=== PATIENT | female | born 1945 | race Caucasian/White ===

== ENCOUNTER 2019-11-04 10:12 | Outpatient (CLI) | payer MEDICARE, SELFPAY ==
--- NOTE | ~2019-11-04 | MM_ITS ---
EXAMINATION: MM screening [facility] BI w avery HISTORY: Screening mammogram TECHNIQUE: Craniocaudal and mediolateral oblique 3-D tomosynthesis images were obtained and synthetic 2-D images were generated. CAD analysis was submitted and interpreted. COMPARISON: 11/07/2018, 09/19/2017, 09/16/2016 bilateral digital screening mammogram examinations BREAST PARENCHYMAL COMPOSITION: There are scattered areas of fibroglandular density. FINDINGS: Occasional bilateral benign calcifications. There is no evidence of suspicious mass, calcif ication, or architectural distortion to suggest malignancy in either breast. There has been no suspic ious interval change. IMPRESSION: 1. No mammographic evidence of malignancy. 2. Recommend routine screening mammography in one year. BI-RADS Category 2: Benign finding(s). Reviewed, dictated and finalized at location A.
== END 2019-11-04 10:13 | disposition home or self-care (01) ==
LOC: ANHIMG 10:17
PROVIDERS: PCP Family Medicine; Visit Provider Family Medicine
DX: Z12.31 Encounter for screening mammogram for malignant neoplasm of breast (principal)
CPT/HCPCS: 77063; 77067

== ENCOUNTER → 2020-08-21 08:25 | Outpatient (CLI) | payer MEDICARE, SELFPAY ==
[2020-08-21 18:21] LABS: SARS-CoV-2 RNA PCR Negative
== END ==
PROVIDERS: PCP Family Medicine; Visit Provider Specialist
DX: Z01.812 Encounter for preprocedural laboratory examination (principal); Z20.822 Contact with and (suspected) exposure to COVID-19
CPT/HCPCS: C9803; U0003; U0005

== ENCOUNTER 2020-08-24 01:16 | Day surgery (SDC) | payer MEDICARE, SELFPAY ==
[2020-08-23 11:23] VITALS: BMI 28.5
[2020-08-24] VITALS (10 sets, daily range): BP systolic 105–176; BP diastolic 58–84; PULSE 63–75; RESP 15–18; TEMP 36.3–36.4; O2SAT 96–99; BMI 29.2
[2020-08-24 11:55] LABS: Basophils Percent Auto 0.5 % (0.2-1.2); Eosinophils Percent Auto 0.3 % (0-4.4); Hemoglobin 13.2 g/dL (12.0-15.0); Immature Granulocyte Absolute 0.02 K/mm3 (0.00-0.031); Immature Granulocyte Percent A 0.3 % (0-0.5); Lymphocytes Absolute Auto 0.92 K/mm3 (0.9-3.2); Lymphocytes Percent Auto 13.9 % (18.3-44.2); Mean Corpuscular HGB Conc 33.8 g/dl (32-36); Mean Corpuscular Hemoglobin 28.8 pg (26-34); Mean Corpuscular Volume 85.2 fl (80-100); Mean Platelet Volume 9.8 fl (7.4-10.4); Monocytes Absolute Auto 0.2 K/mm3 (0.1-0.6); Monocytes Percent Auto 3.3 % (2.6-8.5); Neutrophils Absolute Auto 5.4 K/mm3 (1.3-6.7); Neutrophils Percent Auto 81.7 % (45.5-73.1); Platelet Count Result 212 k/mm3 (150-375); Red Blood Count 4.58 M/mm3 (4.2-5.4); Red Cell Distribution Width 14.2 % (11.5-14.5); White Blood Count 6.6 K/mm3 (4.5-10.0)
[2020-08-24 12:03] LABS: Prothrombin Time 13.6 Seconds (11.1-14.7)
[2020-08-24 12:15] LABS: Anion Gap 6 mmol/L (8-16); Blood Urea Nitrogen 16 mg/dL (7-17); Calcium 9.3 mg/dL (8.4-10.2); Carbon Dioxide 27 mmol/L (22-30); Chloride 103 mmol/L (98-107); Estimated CRCL calculation 68 ml/min; Estimated Glomerular Filt Rate > 60; Glucose 124 mg/dL (65-105); Potassium 4.2 mmol/L (3.4-5.0); Sodium 136 mmol/L (137-145)
--- NOTE | 2020-08-24 13:25 | PM.IMHP ---
H&P: HPI History of Present Illness Date/Time: 08/24/20 13:25 75-year-old lady with history of hypertension, was seen because of recurrent episode of chest pain and shortness breath had a stress test which showed inferior ischemia was brought to the hospital for elective cardiac catheterization for definitive diagnosis of coronary disease Chief Complaint: shortness of breath, chest pain Narrative: Leigh Luna is a 75 year old female [facility] Family History Family History (Updated 05/15/16 @ 10:03 by DOCTOR UNKNOWN) Mother Family history of diabetes mellitus in first degree relative Family history of coronary artery disease Sibling Family history of diabetes mellitus in first degree relative Other Family history of arthritis Family history of osteoarthritis Hypertension Social History Social History Smoking status: Never smoker Second hand tobacco smoke exposure: Yes Alcohol intake: never Substance use: never Substance use type: does not use Living arrangements: with family Gender identity (if verbalized by the patient): Female Spiritual care concerns: No Meds Home Medications and Allergies Home Medications Medication Instructions Recorded Confirmed Type buspirone 7.5 mg PO DAILY 08/23/20 08/23/20 History diclofenac sodium 100 mg PO DAILY 08/23/20 08/23/20 History hydrochlorothiazide 25 mg PO DAILY 08/23/20 08/23/20 History lisinopril 40 mg PO DAILY 08/23/20 08/23/20 History omeprazole 20 mg PO DAILY 08/23/20 08/23/20 History Allergies Allergy/AdvReac Type Severity Reaction Status Date / Time celecoxib Allergy Severe CHEST PAINS Verified 08/24/20 12:25 adhesive tape Allergy Unknown Rash Verified 08/24/20 12:25 duloxetine Allergy Unknown Unknown Verified 08/24/20 12:25 iodine Allergy Unknown Hives Verified 08/24/20 12:25 losartan Allergy Unknown Diarrhea Verified 08/24/20 12:25 morphine Allergy Unknown Nausea and Verified 08/24/20 12:25 Vomiting naproxen Allergy Unknown Unknown Verified 08/24/20 12:25 nickel Allergy Unknown Rash Verified 08/24/20 12:25 shellfish derived Allergy Unknown Hives Verified 08/24/20 12:25 Oksvmbm-Ehm-Qeo Reductase Allergy Unknown Unknown Verified 08/24/20 12:25 Inhibitor Vital Signs Vital Signs - 24 hr 08/24/20 11:23 Temperature 36.3 C L Pulse Rate 68 Respiratory Rate 16 Blood Pressure 176/66 H Pulse Oximetry 96 Exam Narrative: Exam Narrative: Awake alert oriented x3 not in acute distress Neck is supple no obvious JVD, no carotid bruit Chest: Good air entry bilaterally, lungs are clear to auscultation and percussion bilaterally Cardiovascular: Regular rate and rhythm, 2/6 systolic murmur noted left sternal border Abdomen: Soft nontender bowel sounds positive Extremities: No edema has good pulses distally bilaterally H&P: Results Labs Labs: Short CBC 08/24/20 Range/Units 11:45 WBC 6.6 (4.5-10.0) K/mm3 Hgb 13.2 (12.0-15.0) g/dL Hct 39.0 (37.0-47.0) % Plt Count 212 (150-375) k/mm3 BMP 08/24/20 11:45 Sodium 136 L Potassium 4.2 Chloride 103 Carbon Dioxide 27 BUN 16 Creatinine 0.80 Glucose 124 H Calcium 9.3 Assessment and Plan Assessment and plan (1) Coronary artery disease: Code(s): I25.10 - Atherosclerotic heart disease of [place] coronary artery without angina pectoris Status: Acute (2) Abnormal stress electrocardiogram test: Code(s): R94.39 - Abnormal result of other cardiovascular function study Status: Acute Assessment and Plan: will plan cardiac catheterization. The procedure was discussed with the patient, risks, benefits, and alternative diagnostic measure was explained, patient agreed to the procedure
--- NOTE | 2020-08-24 13:26 | WPDMODSED ---
Moderate Sedation Note-Pt Data Patient Data Allergies Allergy/AdvReac Type Severity Reaction Status Date / Time celecoxib Allergy Severe CHEST PAINS Verified 08/24/20 12:25 adhesive tape Allergy Unknown Rash Verified 08/24/20 12:25 duloxetine Allergy Unknown Unknown Verified 08/24/20 12:25 iodine Allergy Unknown Hives Verified 08/24/20 12:25 losartan Allergy Unknown Diarrhea Verified 08/24/20 12:25 morphine Allergy Unknown Nausea and Verified 08/24/20 12:25 Vomiting naproxen Allergy Unknown Unknown Verified 08/24/20 12:25 nickel Allergy Unknown Rash Verified 08/24/20 12:25 shellfish derived Allergy Unknown Hives Verified 08/24/20 12:25 Otdnyar-Zbz-Ibk Reductase Allergy Unknown Unknown Verified 08/24/20 12:25 Inhibitor Home Medications Medication Instructions Recorded Confirmed Type buspirone 7.5 mg PO DAILY 08/23/20 08/23/20 History diclofenac sodium 100 mg PO DAILY 08/23/20 08/23/20 History hydrochlorothiazide 25 mg PO DAILY 08/23/20 08/23/20 History lisinopril 40 mg PO DAILY 08/23/20 08/23/20 History omeprazole 20 mg PO DAILY 08/23/20 08/23/20 History Current Medications: Active Medications Sodium Chloride (Normal Saline Iv) 500 mls @ 100 mls/hr IV CONT .Q5H LANDON Sedation/Anesthesia: No previous sedation/anesthesia problems (including family history). [facility] Family History Family History (Updated 05/15/16 @ 10:03 by DOCTOR UNKNOWN) Mother Family history of diabetes mellitus in first degree relative Family history of coronary artery disease Sibling Family history of diabetes mellitus in first degree relative Other Family history of arthritis Family history of osteoarthritis Hypertension Social History Social History Smoking status: Never smoker Second hand tobacco smoke exposure: Yes Alcohol intake: never Substance use: never Substance use type: does not use Living arrangements: with family Gender identity (if verbalized by the patient): Female Spiritual care concerns: No Mod Sed Physical Exam Physical Exam Pre Procedural Exam: Normal: Appearance, Eyes, Ears, Nose, Neck, Throat, Airway, Lungs, Heart Size, Heart Rate, Heart Rhythm, Neuro Exam, Abdomen, Liver, Kidneys, Spleen, Breasts, Genitalia, Extremities and Skin Hours since solid foods: 8 Hours since liquid intake: 8 Internal Medicine - PN: Obj Da Vital Signs Vital Signs: Vital Signs - 24 hr 08/24/20 11:23 Temperature 36.3 C L Pulse Rate 68 Respiratory Rate 16 Blood Pressure 176/66 H Pulse Oximetry 96 Meds/Results Medications: Active Medications Generic Name Dose Route Start Last Admin Trade Name Joaquinq PRN Reason Stop Dose Admin Sodium Chloride 500 mls @ 100 mls/hr 08/24/20 07:15 Normal Saline Iv IV CONT .Q5H LANDON Labs CBC & Chem 7: 08/24/20 11:45 08/24/20 11:45 Labs: Laboratory Results - last 24 hr 08/24/20 08/24/20 08/24/20 11:45 11:45 11:45 WBC 6.6 RBC 4.58 Hgb 13.2 Hct 39.0 MCV 85.2 MCH 28.8 MCHC 33.8 RDW 14.2 Plt Count 212 MPV 9.8 Immature Gran % (Auto) 0.3 Neut % (Auto) 81.7 H Lymph % (Auto) 13.9 L [place] % (Auto) 3.3 Eos % (Auto) 0.3 Baso % (Auto) 0.5 Lymph # (Auto) 0.92 [place] # (Auto) 0.2 Eos # (Auto) 0.0 Baso # (Auto) 0.0 Abs Immat Gran (auto) 0.02 Absolute Neuts (auto) 5.4 Absolute Nucleated RBC 0.0 Nucleated RBC % 0.0 PT 13.6 INR 1.0 Sodium 136 L Potassium 4.2 Chloride 103 Carbon Dioxide 27 Anion Gap 6 L BUN 16 Creatinine 0.80 Estim Creat Clear Calc 68 Estimated GFR > 60 Glucose 124 H Calcium 9.3 ASA Classification/Sedation ASA Classification/Sedation ASA Class: II Risks: Risks, benefits and alternatives explained and patient/family accepted plan for sedation. Patient re-evaluated immediately prior to sedation.
--- NOTE | 2020-08-24 13:46 | WPDCARDPROC ---
Cardiac Cath Procedure Note Date of procedure:: 08/24/20 Performing physician:: Doug Moreno MD Procedure: 1. Left heart catheterization, selective coronary angiogram. 2. Left ventricular angiogram. 3. Conscious sedation, standing time is 1:26 p.m. ending time is 1:42 p.m. using 1 mg of Versed 25 micro crown fentanyl 4. Right Femoral artery angiogram with Angio-Seal device for arterial hemostasis Group Billing Coordinator: Dr. Doug Moreno Complications: None. Sedation: Conscious sedation, local anesthesia, using 1 mg of Versed said, 25 mcg of fentanyl, and using 1% lidocaine for local anesthesia. History: 75 years old lady with history of hypertension is dyslipidemia seen because of chest pain and shortness breath noted to have abnormal stress test with inferior ischemia was brought to the geotechnical laboratory technician for elective cardiac catheterization for definitive diagnosis of coronary disease. She was premedicated with steroids because of history of dye allergy Technique: After informed consent was obtained from patient, was brought to the geotechnical laboratory technician, put in the geotechnical laboratory technician table, prepped and draped in usual sterile fashion. Five Sammarinese sheath was inserted into the right common femoral artery, through the sheath 5 Sammarinese JL4 catheter inserted, advanced to the left coronary artery, left coronary artery angiogram was obtained. The catheter was exchanged over guidewire into a 5 Sammarinese JR4 catheter, advanced to the right coronary artery, right coronary artery angiogram was obtained. The catheter then was exchanged over guidewire into this 5 Sammarinese pigtail catheter, advanced to left ventricle, left ventricular angiogram was obtained. The catheter then was pulled, the sheath was pulled applying Angio-Seal device for arterial hemostasis. Patient tolerated the procedure no complication, taken from the geotechnical laboratory technician to his room in stable condition stable vital signs. Hemodynamics: aortic pressure 154/60 . LV pressure 158/09 with LVEDP of 21 mmHg Angiographic findings: Left main: Medium size artery no significant disease or stenosis. Lad medium size artery showed no significant disease or stenosis Left circumflex artery, medium size artery, no significant disease or stenosis. there is a branch of the 1st obtuse marginal showed moderate disease but is a very small vessel RCA: Dominant vessel, showed mid RCA no significant disease or stenosis LV: Normal size left ventricle with normal left ventricular systolic function. Summary: Mild coronary artery disease, normal left ventricular systolic function. Recommendation: Maximum medical treatment. Risk factor modification
--- NOTE | 2020-08-24 16:24 | SUR.PHASEII ---
1530 - HOB elevated to 30 degrees after one hour of laying flat on bedrest. Tolerating PO without nausea or vomiting. Voided per bedpan. IVF infusing. RFA site remains clean, dry and intact. Right DP pulses present. Daughter at bedside. Instructed on post cath restrictions with stated understanding.
== END 2020-08-24 17:17 | disposition home or self-care (01) ==
PROVIDERS: PCP Family Medicine; Visit Provider Specialist
PROC: 4A023N7 Measurement of Cardiac Sampling and Pressure, Left Heart, Percutaneous Approach (ICD-10-PCS; CPT 93452; principal; 2020-08-24 13:00)
DX: I25.10 Atherosclerotic heart disease of native coronary artery without angina pectoris (principal); R94.39 Abnormal result of other cardiovascular function study; R07.9 Chest pain, unspecified; R06.02 Shortness of breath; I10 Essential (primary) hypertension; E78.5 Hyperlipidemia, unspecified
CPT/HCPCS: 36415; 80048; 85025; 85610; 93458; C1760; C1887; C1894; C9803; G0269; J1644; J2250; J2930; J3010; J7040; U0003; U0005

== ENCOUNTER 2020-12-06 12:12 | Outpatient (CLI) | payer MEDICARE, SELFPAY ==
--- NOTE | ~2020-12-06 | MM_ITS ---
EXAMINATION: MM screening [facility] BI w avery HISTORY: Screening mammogram TECHNIQUE: Craniocaudal and mediolateral oblique 3-D tomosynthesis images were obtained and synthetic 2-D images were generated. CAD analysis was submitted and interpreted. COMPARISON: 11/04/2019, 10/28/2018, 09/19/2017 BREAST PARENCHYMAL COMPOSITION: There are scattered areas of fibroglandular density. FINDINGS: Scattered benign-appearing calcifications are present. There is no evidence of suspicious m ass, calcification, or architectural distortion to suggest malignancy in either breast. There has bee n no suspicious interval change. IMPRESSION: 1. No mammographic evidence of malignancy. 2. Recommend routine screening mammography in one year. BI-RADS Category 2: Benign finding(s). Reviewed, dictated and finalized at location A.
== END 2020-12-06 12:13 | disposition home or self-care (01) ==
LOC: ANHIMG 12:16
PROVIDERS: PCP Family Medicine; Visit Provider Family Medicine
DX: Z12.31 Encounter for screening mammogram for malignant neoplasm of breast (principal)
CPT/HCPCS: 77063; 77067

== ENCOUNTER 2022-07-01 15:50 | Outpatient (CLI) | payer MEDICARE, SELFPAY ==
--- NOTE | ~2022-07-01 | MM_ITS ---
EXAMINATION: MM screening [facility] BI w avery HISTORY: Screening mammogram TECHNIQUE: Craniocaudal and mediolateral oblique 3-D tomosynthesis images were obtained and synthetic 2-D images were generated. CAD analysis was submitted and interpreted. COMPARISON: 12/06/2020, 11/04/2019, 10/28/2018 bilateral screening mammogram examinations BREAST PARENCHYMAL COMPOSITION: There are scattered areas of fibroglandular density. FINDINGS: Scattered bilateral benign calcifications. There is no evidence of suspicious mass, calcifi cation, or architectural distortion to suggest malignancy in either breast. There has been no suspici ous interval change. IMPRESSION: 1. No mammographic evidence of malignancy. 2. Recommend routine screening mammography in one year. BI-RADS Category 2: Benign finding(s). Reviewed, dictated and finalized at location A. AY OPERATOR
== END 2022-07-01 15:51 | disposition home or self-care (01) ==
LOC: ANHIMG 15:51
PROVIDERS: PCP Family Medicine; Visit Provider Family Medicine
DX: Z12.31 Encounter for screening mammogram for malignant neoplasm of breast (principal)
CPT/HCPCS: 77063; 77067

== ENCOUNTER 2023-01-14 16:07 | Outpatient (CLI) | payer MEDICARE, SELFPAY ==
--- NOTE | ~2023-01-14 | XR_ITS ---
XR knee RT 3V 01/14/2023 16:32 Indication: Right knee pain Procedure: 3 views right knee Comparison: 03/17/2017 Findings: There are changes of right knee arthroplasty. Prosthesis well seated. No underlying fractur e or traumatic malalignment. No acute fracture or traumatic malalignment. No significant joint effusi on. Impression: 1: No acute fracture. Reviewed, dictated and finalized at location A. Impression: 1: No acute fracture.
--- NOTE | ~2023-01-14 | XR_ITS ---
XR lumbar spine 2-3V 01/14/2023 16:32 Indication: Back pain Procedure: 3 views lumbar spine Comparison: No prior studies for comparison. Findings: There is disc narrowing at all lumbar levels. There is moderate facet hypertrophy at L3-4 t hrough L5-S1. There is degenerative retrolisthesis at L1-2 and L2-3. No acute fracture or traumatic m alalignment. Vertebral body heights are maintained. There is mild dextrocurvature of the lumbar spine . There are cholecystectomy clips. Impression: 1: Severe lumbar spondylosis. 2: No acute fracture. Reviewed, dictated and finalized at location A. Impression: 1: Severe lumbar spondylosis. 2: No acute fracture.
== END 2023-01-14 16:08 | disposition home or self-care (01) ==
PROVIDERS: PCP Nurse Practitioner Adult Health; Visit Provider Nurse Practitioner Adult Health
DX: M47.816 Spondylosis without myelopathy or radiculopathy, lumbar region (principal); M25.561 Pain in right knee; Z96.651 Presence of right artificial knee joint
CPT/HCPCS: 72100; 73562

== ENCOUNTER 2023-02-17 08:45 | Outpatient (CLI) | payer MEDICARE, SELFPAY ==
--- NOTE | 2023-02-17 | ECHO_ITS ---
Patient Info Name: Leigh Luna Age: 77 years : 1945 Gender: Female Ht: 71 in Wt: 175 lbs BSA: 2.00 m2 HR: 68 bpm BP: 161 / 80 mmHg Heart Rhythm: Sinus Rhythm Technical Quality: Fair Exam Date: 02/17/2023 9:00 AM Exam Location: [facility] Pulmonary Patient Status: Outpatient Admit Date: 02/17/2023 Staff Ordering Physician: BrandonInder APRN Metal Sorter: Kaia Reyes RDCS Attending Provider: Brandon, Inder Lovelace APRN Referring Physician: Jayden VASQUEZ; Exam Type: CA echo doppler color flow Study Info Indications R01.1 - Cardiac murmur, unspecified Complete two-dimensional, color flow and Doppler transthoracic echocardiogram is performed. Summary 1. Complete two-dimensional, color flow and Doppler transthoracic echocardiogram is performed. 2. Concentric left ventricular hypertrophy with normal systolic function and grade 1 diastolic noncompliance. 3. No valvular dysfunction. Left Ventricle Left ventricular chamber dimension is normal. Left ventricular systolic function is normal, estimated at 60-65%. There is mild concentric increased left ventricular wall thickness. The left ventricular diastolic function is grade I diastolic dysfunction. Right Ventricle Right ventricular chamber dimension is normal. Left Atria Left atrial chamber dimension is normal. Right Atria Right atrial chamber dimension is normal. Aortic Valve The aortic valve is normal. Pulmonic Valve The pulmonic valve is not well visualized. Mitral Valve The mitral valve has normal leaflets. Tricuspid Valve The tricuspid valve leaflets are normal. Pericardium/Pleural The pericardium appears normal. Aorta The aortic root size at the sinus of Valsalva is normal. Left Ventricular Outflow Tract Name Value Normal LVOT 2D LVOT Diameter 2.0 cm LVOT Doppler LVOT Peak Gradient 6 mmHg LVOT Mean Gradient 4 mmHg LVOT VTI 28 cm LVOT VTI/AV VTI Ratio 0.8 LVOT Stroke Volume 84 ml LVOT CO 5.9 l/min LVOT CI 2.9 l/min/m2 Pulmonic Valve Name Value Normal RVOT Doppler RVOT Peak Gradient 3 mmHg PV Doppler PV Peak Gradient 4 mmHg Mitral Valve Name Value Normal MV Doppler MV Decel [place] 567 cm/s2 MV PHT 51 ms MV Area (PHT) 4.3 cm2 4.0-5.0 MV Diastolic Function
== END 2023-02-17 08:46 | disposition home or self-care (01) ==
PROVIDERS: PCP Nurse Practitioner Adult Health; Visit Provider Nurse Practitioner Adult Health
DX: R01.1 Cardiac murmur, unspecified (principal)
CPT/HCPCS: 93306

== ENCOUNTER 2023-03-15 15:56 | Emergency (ER) | payer MEDICARE, SELFPAY ==
--- NOTE | ~2023-03-15 | CT_ITS ---
EXAMINATION: CT abdomen pelvis wo con DATE: 03/15/2023 17:35 INDICATION: abdominal pain TECHNIQUE: Computed tomography (CT) of the abdomen and pelvis was performed without intravenous contr ast. Automated exposure control and iterative reconstruction technique were employed. The dose-length product was 841.02 mGy-cm. COMPARISON: None. FINDINGS: Lower thorax: 3 mm nodular opacity in the left lower lobe. Minimal bibasilar scar/atelectasis. Mahmood ry artery calcification. Liver: Left lobe cyst or hemangioma. Biliary/Gallbladder: Gallbladder is absent. No bile duct dilation. Pancreas: 5 and 6 mm cystic densities at the pancreatic tail and body. 10 mm cystic density at the pa ncreatic head. Spleen: Normal. Adrenals: Left adrenal adenoma. Kidneys: 7.8 cm soft tissue density right upper pole mass now project in calcification. Simple right midpole cyst. No hydronephrosis. GI tract: No small or large bowel dilation. Normal appendix. Diverticulosis without diverticulitis. Mesentery/Peritoneum: No ascites, mass, or free air. Retroperitoneum: No mass. Atherosclerotic abdominal aortic and/or arterial calcifications. 11 mm part ially calcified splenic artery aneurysm. Pelvis: Pelvic organs are within normal limits. Soft Tissues: Soft tissues and body wall unremarkable. Bones: No acute osseous finding. IMPRESSION: 7.8 cm right upper pole renal mass suspicious for renal cell carcinoma. Given the history of contrast allergy, recommend MRI of the abdomen without and with contrast for further evaluation. 3 mm left lower lobe pulmonary nodule and multiple subcentimeter hepatic lytic cysts, follow-up will depend on the results of the above recommended MRI. 11 mm splenic artery aneurysm, typical follow-up is recommended in one year, depending on patient wis hes and comorbidities. Reviewed, dictated and finalized at location K. IMPRESSION: 7.8 cm right upper pole renal mass suspicious for renal cell carcinoma. Given t he history of contrast allergy, recommend MRI of the abdomen without and with c ontrast for further evaluation. 3 mm left lower lobe pulmonary nodule and multiple subcentimeter hepatic lytic cysts, follow-up will depend on the results of the above recommended MRI. 11 mm splenic artery aneurysm, typical follow-up is recommended in one year, de pending on patient wishes and comorbidities.
[2023-03-15 15:57] VITALS: BP 207/75; PULSE 86; RESP 18; TEMP 36.6; O2SAT 98
--- NOTE | 2023-03-15 16:21 | ED.NAVMDI ---
HPI - Nausea/Vomiting/Diarrhea General Chief complaint: Nausea/Vomiting/Diarrhea Stated complaint: Nausea, belching, diarrhea x2 weeks Time Seen by Provider: 03/15/23 16:18 History of Present Illness HPI Narrative: Patient is a 77-year-old female here with epigastric abdominal pain, heartburn, increased belching. Patient states that for the last 2 weeks she has had increasingly worsening symptoms. She is on Pepcid and increased it over the last few months from 20 mg daily to 40 mg daily. she is complaining of some so seated diarrhea. No fever chills. No known sick contacts, no new foods. She denies any chest pain or shortness of breath. Last colonoscopy was more than 10 years ago, she has been doing Cologuard the her primary care doctor. Her primary care doctor has referred her to GI and she is waiting for an appointment. Additionally she has noted some vague right flank pain which has been present over an unknown period of time. She does not believe this changes with eating and seems to be constant. No hematuria or dysuria. Related Data Home Medications Medication Instructions Recorded Confirmed buspirone 7.5 mg tablet 7.5 mg PO DAILY 08/23/20 09/12/22 diclofenac sodium 100 mg 100 mg PO DAILY 08/23/20 09/12/22 tablet,extended release 24 hr ascorbic acid (vitamin C) 500 mg 500 mg PO DAILY 08/06/22 09/12/22 capsule,extended release (Vitamin C) cetirizine 10 mg capsule (Zyrtec) 10 mg PO BID PRN 08/06/22 09/12/22 ergocalciferol (vitamin D2) 1,250 1,250 mcg PO WEEKLY 08/06/22 09/12/22 mcg (50,000 unit) capsule (Vitamin D2) magnesium 200 mg tablet 200 mg PO DAILY 08/06/22 09/12/22 tramadol 50 mg tablet 50 mg PO Q6H PRN pain 08/06/22 09/12/22 Allergies Allergy/AdvReac Type Severity Reaction Status Date / Time celecoxib Allergy Severe CHEST PAINS Verified 09/12/22 10:31 adhesive tape Allergy Unknown Rash Verified 09/12/22 10:31 duloxetine Allergy Unknown Unknown Verified 09/12/22 10:31 iodine Allergy Unknown Hives Verified 09/12/22 10:31 losartan Allergy Unknown Diarrhea Verified 09/12/22 10:31 morphine Allergy Unknown Nausea and Verified 09/12/22 10:31 Vomiting naproxen Allergy Unknown Unknown Verified 09/12/22 10:31 nickel Allergy Unknown Rash Verified 09/12/22 10:31 shellfish derived Allergy Unknown Hives Verified 09/12/22 10:31 Kyqgmhe-BOY-YuA Reductase Allergy Unknown Unknown Verified 09/12/22 10:31 Inhibitor [Wgqxzxf-Gxc-Rwm Reductase Inhibitor] Review of Systems Review of Systems: CONSTITUTIONAL: Denies fever, chills, or sweats. EYES: Denies visual changes, redness, or discharge. ENT: Denies rhinorrhea, congestion, sore throat, or otalgia. CARDIOVASCULAR: Denies chest pain, palpitations, or edema. RESPIRATORY: Denies cough or dyspnea. GASTROINTESTINAL: abdominal pain, nausea, vomiting, and diarrhea. GENITOURINARY: Denies dysuria or hematuria. Right flank pain. SKIN: Denies rash or itching. MUSCULOSKELETAL: Denies back pain, joint pain, or myalgia. NEUROLOGIC: Denies headache, numbness, or weakness. PSYCHIATRIC: Denies anxiety or depression. [facility] Surgical History Surgical History History of cholecystectomy History of total left knee replacement (2013) History of total right knee replacement (2016) Family History Family History Mother Family history of diabetes mellitus in first degree relative Family history of coronary artery disease Sibling Family history of diabetes mellitus in first degree relative Ovarian cancer Other Family history of arthritis Family history of osteoarthritis Hypertension Social History Social History Smoking status: Never smoker Second hand tobacco smoke exposure: Yes Alcohol intake: never Substance use: never Substance use type: does not use Living arrange
[2023-03-15 16:24] LABS: Basophils Absolute Auto 0.1 K/mm3 (0.0-0.1); Basophils Percent Auto 1.5 % (0.2-1.2); Eosinophils Absolute Auto 0.1 K/mm3 (0-0.3); Hematocrit 40.1 % (37.0-47.0); Hemoglobin 13.3 g/dL (12.0-15.0); Immature Granulocyte Absolute 0.01 K/mm3 (0.00-0.031); Immature Granulocyte Percent A 0.2 % (0-0.5); Lymphocytes Percent Auto 31.1 % (18.3-44.2); Mean Corpuscular HGB Conc 33.2 g/dl (32-36); Mean Corpuscular Hemoglobin 28.7 pg (26-34); Mean Corpuscular Volume 86.4 fl (80-100); Mean Platelet Volume 10.3 fl (7.4-10.4); Monocytes Absolute Auto 0.5 K/mm3 (0.1-0.6); Neutrophils Absolute Auto 2.7 K/mm3 (1.3-6.7); Neutrophils Percent Auto 56.2 % (45.5-73.1); Platelet Count Result 227 k/mm3 (150-375); Red Blood Count 4.64 M/mm3 (4.2-5.4); Red Cell Distribution Width 14.4 % (11.5-14.5); White Blood Count 4.8 K/mm3 (4.5-10.0)
--- NOTE | 2023-03-15 16:33 | ECG_ITS ---
Measurements Intervals [place] Rate: 78 P: 22 MN: 164 QRS: 10 QRSD: 93 T: 38 QT: 364 QTc: 416 Interpretive Statements SINUS RHYTHM BASELINE ARTIFACT- V6 NORMAL ECG COMPARED TO ECG 12/03/2018 11:24:31 NO SIGNIFICANT CHANGES Electronically Signed On 03-15-2023 18:09:25 CDT by Stephen Moscoso D.O.
[2023-03-15 16:36] LABS: Alanine Aminotransferase 19 U/L (6-35); Albumin Level 4.3 g/dL (3.5-5.1); Alkaline Phosphatase 53 U/L (38-126); Anion Gap 8 mmol/L (8-16); Aspartate Amino Transferase 31 U/L (14-36); Bilirubin,Total 0.6 mg/dL (0.2-1.3); Blood Urea Nitrogen 13 mg/dL (7-17); Calcium 9.7 mg/dL (8.4-10.2); Carbon Dioxide 26 mmol/L (22-30); Chloride 101 mmol/L (98-107); Estimated CRCL calculation 67 ml/min; Estimated Glomerular Filt Rate > 60; Glucose 138 mg/dL (65-110); Lipase 102 U/L (23-300); Potassium 4.1 mmol/L (3.4-5.0); Sodium 135 mmol/L (137-145)
[2023-03-15 16:39] LABS: Appearance Urine Clear (Clear); Bilirubin Urine Negative (Negative); Blood Urine Negative (Negative); Color Urine Yellow (Yellow); Glucose Urine UA Negative (Negative); Ketones Urine Negative (Negative); Leukocyte Esterase Ur Negative LEU/UL (Negative); Nitrate Urine Negative (Negative); Protein Urine Negative (Negative); Specific Grav Ur 1.012 (1.001-1.035); Urobilinogen Urine 0.2 mg/dL (<2.0); pH Urine 5.5 (5.0-9.0)
[2023-03-15 16:41] LABS: Add Urine Microscopic? NO
[2023-03-15 17:03] LABS: Troponin I < 0.012 ng/mL (0.000-0.034)
[2023-03-15] MEDS: ONDANSETRON HCL ODT 4 MG TABLET PO (17:15)
[2023-03-15 18:00] VITALS: BP 178/89; PULSE 84; RESP 20; O2SAT 97
[2023-03-15 19:17] VITALS: BP 177/92; PULSE 84; RESP 18; O2SAT 98
== END 2023-03-15 19:20 | disposition home or self-care (01) ==
PROVIDERS: Emergency Medicine; Emergency Provider Student in an Organized Health Care Education/Training Program; PCP Nurse Practitioner Adult Health
DX: N28.89 Other specified disorders of kidney and ureter (principal); I72.8 Aneurysm of other specified arteries; R11.2 Nausea with vomiting, unspecified; R19.7 Diarrhea, unspecified; R10.13 Epigastric pain; R91.1 Solitary pulmonary nodule; Z96.653 Presence of artificial knee joint, bilateral; Z90.49 Acquired absence of other specified parts of digestive tract
CPT/HCPCS: 36415; 74176; 80053; 81003; 83690; 84484; 85025; 93005; 99284; A9270

== ENCOUNTER 2023-03-22 09:13 | Outpatient (NON) | payer MEDICARE, SELFPAY ==
[2023-03-22 15:43] LABS: Toxigenic C. Diff NEGATIVE (NEGATIVE)
[2023-03-29 22:49] LABS: Calprotectin, Stool 108 mcg/g
[2023-03-30 00:27] LABS: Pancreatic Elastase, Stool 349 mcg/g
== END 2023-03-22 09:14 | disposition home or self-care (01) ==
PROVIDERS: PCP Nurse Practitioner Adult Health; Visit Provider Nurse Practitioner
DX: R10.31 Right lower quadrant pain (principal); R10.32 Left lower quadrant pain; R19.7 Diarrhea, unspecified; R19.8 Other specified symptoms and signs involving the digestive system and abdomen
CPT/HCPCS: 82653; 83993; 87045; 87269; 87427; 87449; 87493

== ENCOUNTER 2023-03-25 09:11 | Outpatient (CLI) | payer MEDICARE, SELFPAY ==
--- NOTE | ~2023-03-25 | MR_ITS ---
EXAMINATION: MR abdomen wo/w con DATE: 03/25/2023 10:17 INDICATION: Right kidney mass. TECHNIQUE: Magnetic resonance imaging (MRI) of the abdomen was performed without and with 18 mL Multi Letitia intravenous contrast. COMPARISON: CT abdomen and pelvis 04/14/2023 FINDINGS: There are cysts in the liver measuring up to 12 mm. The the gallbladder is absent. The spleen is norm al. The pancreatic duct is normal in caliber. There are approximately 5 cystic lesions in the pancrea s measuring up to 11 mm. The adrenal glands and left kidney are normal. There is a 2.5 cm cyst in rig ht kidney. There is a 7.3 cm enhancing mass in right kidney. There is diverticulosis of the colon wit hout evidence of diverticulitis. There are no pathologically enlarged lymph nodes. There is no free i ntraperitoneal fluid. IMPRESSION: 1. 7.3 cm enhancing mass in right kidney, consistent with renal cell carcinoma. 2. Cystic lesions of the pancreas measuring up to 11 mm without high-risk features. The differential diagnosis includes pseudocyst, intraductal papillary mucinous neoplasm (IPMN), mucinous cystic neopla sm (MCN), serous cystadenoma, and neuroendocrine tumor. Abdomen MRI without and with contrast is kenton mmended in one year. Reviewed, dictated and finalized at location E. IMPRESSION: 1. 7.3 cm enhancing mass in right kidney, consistent with renal cell carcinoma. 2. Cystic lesions of the pancreas measuring up to 11 mm without high-risk featu res. The differential diagnosis includes pseudocyst, intraductal papillary muci nous neoplasm (IPMN), mucinous cystic neoplasm (MCN), serous cystadenoma, and n euroendocrine tumor. Abdomen MRI without and with contrast is recommended in on e year.
== END 2023-03-25 09:12 | disposition home or self-care (01) ==
PROVIDERS: PCP Nurse Practitioner Adult Health; Visit Provider Nurse Practitioner Adult Health
DX: D49.511 Neoplasm of unspecified behavior of right kidney (principal); K86.2 Cyst of pancreas
CPT/HCPCS: 74183; A9577

== ENCOUNTER 2023-04-01 00:22 | Day surgery (SDC) | payer MEDICARE, SELFPAY ==
[2023-03-25 12:15] VITALS: BMI 27.6
[2023-04-01 11:14] VITALS: BP 207/63; PULSE 82; RESP 18; TEMP 35.9; O2SAT 98
[2023-04-01] MEDS: LACTATED RINGERS 1,000 ML 150 ML IV CONT (11:24)
--- NOTE | 2023-04-01 11:24 | WPDHPUPDATE1 ---
History and Physical Update Update Date/Time: 04/01/23 11:24 History and Physical has been reviewed, including an updated exam of the patient. There are NO changes in the patient's condition. Risks, benefits, and alternatives have been discussed and questions answered. Patient agrees to proceed with procedure.
--- NOTE | 2023-04-01 12:22 | WPDANESEPPF ---
Anes - Initial Pre Proc Eval Procedure: Operation Date: 04/01/23 12:30 Proposed Procedures p Esophagogastroduodenoscopy - Honorio Oquendo MD Date/Time: 04/01/23 12:22 Surgeon: Honorio Oquendo MD Pre Op Diagnosis: Right lower quadrant pain,Left lower quadrant pain Patient Data Age: 77 Gender: F Height: 1.8 m Weight: 88.1 kg Last Vital Signs Temp 96.7 F L 04/01/23 11:14 Pulse 82 04/01/23 11:14 Resp 18 04/01/23 11:14 BP 207/63 H 04/01/23 11:14 Pulse Ox 98 04/01/23 11:14 O2 Del Method Room Air 04/01/23 11:14 Allergies Allergy/AdvReac Type Severity Reaction Status Date / Time celecoxib Allergy Severe CHEST PAINS Verified 04/01/23 11:11 adhesive tape Allergy Unknown Rash Verified 04/01/23 11:11 duloxetine Allergy Unknown Unknown Verified 04/01/23 11:11 iodine Allergy Unknown Hives Verified 04/01/23 11:11 losartan Allergy Unknown Diarrhea Verified 04/01/23 11:11 morphine Allergy Unknown Nausea and Verified 04/01/23 11:11 Vomiting naproxen Allergy Unknown Unknown Verified 04/01/23 11:11 nickel Allergy Unknown Rash Verified 04/01/23 11:11 shellfish derived Allergy Unknown Hives Verified 04/01/23 11:11 Vvyudjj-XGB-QcL Reductase Allergy Unknown Unknown Verified 04/01/23 11:11 Inhibitor [Wsbtkvi-Hps-Ids Reductase Inhibitor] Home Medications Medication Instructions Recorded Confirmed Type buspirone 7.5 mg tablet 7.5 mg PO DAILY 08/23/20 03/25/23 History diclofenac sodium 100 mg 100 mg PO DAILY 08/23/20 03/25/23 History tablet,extended release 24 hr ascorbic acid (vitamin C) 500 mg 500 mg PO DAILY 08/06/22 03/25/23 History capsule,extended release (Vitamin C) cetirizine 10 mg capsule (Zyrtec) 10 mg PO BID PRN Allergy Symptoms 08/06/22 03/25/23 History ergocalciferol (vitamin D2) 1,250 1,250 mcg PO WEEKLY 08/06/22 03/25/23 History mcg (50,000 unit) capsule (Vitamin D2) magnesium 200 mg tablet 200 mg PO DAILY 08/06/22 03/25/23 History tramadol 50 mg tablet 50 mg PO Q6H PRN pain 08/06/22 03/25/23 History cyclobenzaprine 5 mg tablet 5 mg PO TID PRN muscle spasm #30 09/12/22 03/25/23 Rx tabs omeprazole 20 mg capsule,delayed 20 mg PO DAILY #90 caps 10/21/22 03/25/23 Rx release hydrochlorothiazide 25 mg tablet 25 mg PO DAILY #90 tabs 11/01/22 03/25/23 Rx lisinopril 40 mg tablet 40 mg PO DAILY #90 tabs 11/01/22 03/25/23 Rx ondansetron 4 mg disintegrating 4 mg PO Q8H PRN nausea and 03/15/23 03/25/23 Rx tablet vomiting #10 tabs Patient hx anesthesia problems: none Family hx anesthesia problems: none Results Review: All pre-operative results and documents have been reviewed as part of the pre-operative evaluation. [facility] Past Medical History Medical History (Updated 03/27/23 @ 10:36 by Nicole Gómez APRN) Acute diarrhea Bilateral lower abdominal cramping Borborygmus Chronic GERD Liver lesion Pancreatic cyst Pancreatic lesion RUQ pain Surgical History Surgical History History of cholecystectomy History of total left knee replacement (2013) History of total right knee replacement (2016) Family History Family History Mother Family history of diabetes mellitus in first degree relative Family history of coronary artery disease Sibling Family history of diabetes mellitus in first degree relative Ovarian cancer Other Family history of arthritis Family history of osteoarthritis Hypertension Social History Social History Smoking status: Never smoker Second hand tobacco smoke exposure: Yes Alcohol intake: never Substance use: never Substance use type: does not use Living arrangements: with family Gender identity (if verbalized by the patient): Female Spiritual care concerns: No Anes - Eval Final PreProcedure Day of Procedure 04/01/23 12:22
[2023-04-01] MEDS: SIMETHICONE ORAL SUSPENSION 20 MG/0.3 ML 30 ML BOTTLE 0.6 ML IRRIGATION (12:38)
[2023-04-01 12:45] VITALS: BP 121/59; PULSE 72; RESP 19; O2SAT 97
[2023-04-01 12:55] VITALS: BP 144/68; PULSE 71; RESP 20; O2SAT 96
[2023-04-01 13:05] VITALS: BP 144/72; PULSE 67; RESP 19; O2SAT 99
== END 2023-04-01 13:13 | disposition home or self-care (01) ==
PROVIDERS: PCP Nurse Practitioner Adult Health; Visit Provider Internal Medicine Gastroenterology
PROC: 0DJ08ZZ Inspection of Upper Intestinal Tract, Via Natural or Artificial Opening Endoscopic (ICD-10-PCS; CPT 43235; principal; 2023-04-01 12:30)
DX: K29.50 Unspecified chronic gastritis without bleeding (principal); K21.9 Gastro-esophageal reflux disease without esophagitis; K30 Functional dyspepsia; R14.0 Abdominal distension (gaseous); I10 Essential (primary) hypertension; R19.8 Other specified symptoms and signs involving the digestive system and abdomen; K86.9 Disease of pancreas, unspecified; K76.9 Liver disease, unspecified; Z79.891 Long term (current) use of opiate analgesic
CPT/HCPCS: 43235; 87081; J2405; J2704; J3010; J7120

== ENCOUNTER 2023-10-04 18:07 | Emergency (ER) | payer MEDICARE, MEDICAID, SELFPAY ==
[2023-10-04 18:16] VITALS: BP 221/74; PULSE 80; RESP 18; TEMP 36.8; O2SAT 80
--- NOTE | 2023-10-04 19:04 | ECG_ITS ---
SEE SCANNED COPY FOR CONFIRMED REPORT MTDD
[2023-10-04 19:22] VITALS: BP 154/62; PULSE 67; RESP 20; RESP 23; O2SAT 94
--- NOTE | 2023-10-04 19:29 | ED.GENADULT ---
HPI - General Adult General Chief complaint: Recheck/Abnormal Lab/Rx Stated complaint: High Blood Pressures x3 Days Time Seen by Provider: 10/04/23 19:03 Source: patient Mode of arrival: ambulatory Limitations: no limitations History of Present Illness HPI narrative: Her 78-year-old female presenting for hypertension. History of hypertension. Takes medication for it. Has been checking her blood pressure over the last few days any gets occasional posterior headaches without any other complaints and finding blood pressure to be elevated. Find over 200 today. When she came in it was 221/74. When I assessed her is 154/62. Related Data Home Medications Medication Instructions Recorded Confirmed buspirone 7.5 mg tablet 7.5 mg PO DAILY 08/23/20 03/25/23 diclofenac sodium 100 mg 100 mg PO DAILY 08/23/20 03/25/23 tablet,extended release 24 hr ascorbic acid (vitamin C) 500 mg 500 mg PO DAILY 08/06/22 03/25/23 capsule,extended release (Vitamin C) cetirizine 10 mg capsule (Zyrtec) 10 mg PO BID PRN Allergy Symptoms 08/06/22 03/25/23 ergocalciferol (vitamin D2) 1,250 1,250 mcg PO WEEKLY 08/06/22 03/25/23 mcg (50,000 unit) capsule (Vitamin D2) magnesium 200 mg tablet 200 mg PO DAILY 08/06/22 03/25/23 tramadol 50 mg tablet 50 mg PO Q6H PRN pain 08/06/22 03/25/23 Allergies Allergy/AdvReac Type Severity Reaction Status Date / Time celecoxib Allergy Severe CHEST PAINS Verified 04/01/23 11:11 adhesive tape Allergy Unknown Rash Verified 04/01/23 11:11 duloxetine Allergy Unknown Unknown Verified 04/01/23 11:11 iodine Allergy Unknown Hives Verified 04/01/23 11:11 losartan Allergy Unknown Diarrhea Verified 04/01/23 11:11 morphine Allergy Unknown Nausea and Verified 04/01/23 11:11 Vomiting naproxen Allergy Unknown Unknown Verified 04/01/23 11:11 nickel Allergy Unknown Rash Verified 04/01/23 11:11 shellfish derived Allergy Unknown Hives Verified 04/01/23 11:11 Alsbsyv-OXQ-AxC Reductase Allergy Unknown Unknown Verified 04/01/23 11:11 Inhibitor [Gnepqon-Ppv-Gdn Reductase Inhibitor] Review of Systems Review of Systems: All systems reviewed & are unremarkable except as noted in HPI and below PMFSH Past Medical History Medical History Acute diarrhea Bilateral lower abdominal cramping Borborygmus Chronic GERD Liver lesion Pancreatic cyst Pancreatic lesion RUQ pain Surgical History Surgical History History of cholecystectomy History of total left knee replacement (2013) History of total right knee replacement (2017) Family History Family History Mother Family history of diabetes mellitus in first degree relative Family history of coronary artery disease Sibling Family history of diabetes mellitus in first degree relative Ovarian cancer Other Family history of arthritis Family history of osteoarthritis Hypertension Social History Social History Smoking status: Never smoker Second hand tobacco smoke exposure: Yes Alcohol intake: never Substance use: never Substance use type: does not use Living arrangements: with family Gender identity (if verbalized by the patient): Female Spiritual care concerns: No Exam Narrative: Constitutional: Generally well appearing, no acute distress Head: Atraumatic, no deformities. Eyes: Pupils equal, round, and reactive to light. Neck: Supple, no tracheal deviation, no JVD. ENMT: Mucous membranes moist Cardiovascular: S1, S2 auscultated. No murmurs, rubs, or gallops. No S3/S4. Normal Distal pulses. No peripheral edema. Respiratory: Lung sounds equal. No wheezes, rales, or rhonchi. Gastrointestinal: Abdomen was soft and non-tender. Non-distended. No rebound or guarding. Genitourinary: Deferred Musculoskeletal: Nor
[2023-10-04] MEDS: ACETAMINOPHEN 500 MG TABLET 1000 MG PO (19:38)
[2023-10-04 19:47] LABS: Basophils Absolute Auto 0.1 K/mm3 (0.0-0.1); Basophils Percent Auto 1.7 % (0.2-1.2); Eosinophils Absolute Auto 0.2 K/mm3 (0-0.3); Eosinophils Percent Auto 3.9 % (0-4.4); Hematocrit 38.4 % (37.0-47.0); Hemoglobin 12.9 g/dL (12.0-15.0); Lymphocytes Absolute Auto 1.39 K/mm3 (0.9-3.2); Lymphocytes Percent Auto 34.2 % (18.3-44.2); Mean Corpuscular HGB Conc 33.6 g/dl (32-36); Mean Corpuscular Hemoglobin 29.1 pg (26-34); Mean Corpuscular Volume 86.5 fl (80-100); Mean Platelet Volume 9.6 fl (7.4-10.4); Monocytes Absolute Auto 0.4 K/mm3 (0.1-0.6); Monocytes Percent Auto 9.8 % (2.6-8.5); Neutrophils Absolute Auto 2.1 K/mm3 (1.3-6.7); Neutrophils Percent Auto 50.4 % (45.5-73.1); Platelet Count Result 201 k/mm3 (150-375); Red Blood Count 4.44 M/mm3 (4.2-5.4); White Blood Count 4.1 K/mm3 (4.5-10.0)
[2023-10-04 19:57] LABS: Anion Gap 7 mmol/L (4-12); Blood Urea Nitrogen 22 mg/dL (7-17); Calcium 9.9 mg/dL (8.4-10.2); Carbon Dioxide 28 mmol/L (22-30); Chloride 102 mmol/L (98-107); Estimated CRCL calculation 43 ml/min; Estimated Glomerular Filt Rate 48; Glucose 134 mg/dL (65-110); Sodium 137 mmol/L (137-145)
[2023-10-04 20:09] LABS: Troponin I < 0.012 ng/mL (0.000-0.034)
== END 2023-10-04 20:37 | disposition home or self-care (01) ==
PROVIDERS: Emergency Provider Emergency Medicine
DX: I10 Essential (primary) hypertension (principal); K21.9 Gastro-esophageal reflux disease without esophagitis; Z90.49 Acquired absence of other specified parts of digestive tract; Z96.653 Presence of artificial knee joint, bilateral; R94.31 Abnormal electrocardiogram [ECG] [EKG]
CPT/HCPCS: 36415; 80048; 84484; 85025; 93005; 99284; A9270

== ENCOUNTER 2023-10-14 14:13 | Outpatient (CLI) | payer MEDICARE, SELFPAY ==
--- NOTE | ~2023-10-14 | CT_ITS ---
Non-contrast CT scan of the Abdomen and Pelvis Clinical indication: Abdominal pain Technique: 2.5 mm axial scans were obtained through the abdomen and pelvis without intravenous or or al contrast. Dose reduction technique was used on this scan by utilizing automated exposure control a nd iterative reconstruction technique. The dose-length product (DLP) was 900.09 mGy-cm. COMPARISON: 03/15/2023 Findings: Images through the lung bases reveal no abnormalities. Left kidney unremarkable. Status post right nephrectomy. The liver, spleen, pancreas, and right adrenal gland appear normal. Stable small left adrenal nodule. Cholecystectomy clips are present. 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 Ther e are atherosclerotic calcifications of the aorta. There is no evidence of bowel obstruction. There is extensive colonic diverticulosis. Images through the pelvis were performed. There is no evidence of ascites or lymphadenopathy. Urinary bladder unremarkable. No adnexal mass seen. Impression: No evidence of active malignancy or metastatic disease. Status post right nephrectomy. Stable small adrenal nodule, most likely adenoma. Reviewed, dictated and finalized at [facility]. Impression: No evidence of active malignancy or metastatic disease. Status post right nephr ectomy. Stable small adrenal nodule, most likely adenoma.
== END 2023-10-14 14:14 | disposition home or self-care (01) ==
PROVIDERS: Visit Provider Registered Nurse
DX: R10.9 Unspecified abdominal pain (principal); E27.9 Disorder of adrenal gland, unspecified; Z90.5 Acquired absence of kidney
CPT/HCPCS: 74176

== ENCOUNTER 2023-12-17 13:16 | Outpatient (CLI) | payer MEDICARE, MEDICAID, SELFPAY ==
--- NOTE | ~2023-12-17 | MM_ITS ---
EXAMINATION: MM screening [facility] BI w avery HISTORY: Screening mammogram TECHNIQUE: Craniocaudal and mediolateral oblique 3-D tomosynthesis images were obtained and synthetic 2-D images were generated. CAD analysis was submitted and interpreted. COMPARISON: 07/01/2022, 12/06/2020, 11/04/2019 BREAST PARENCHYMAL COMPOSITION:Not Dense. There are scattered areas of fibroglandular density. FINDINGS: No suspicious mass, calcification, or architectural distortion are identified in either hyacinth ast to suggest malignancy. There has been no suspicious interval change. IMPRESSION: No mammographic evidence of malignancy. Recommend routine screening mammography in one year. BI-RADS Category 1: Negative Reviewed, dictated and finalized at location .
== END 2023-12-17 13:17 | disposition home or self-care (01) ==
LOC: ANHIMG 13:20
PROVIDERS: PCP Family Medicine; Visit Provider Nurse Practitioner Adult Health
DX: Z12.31 Encounter for screening mammogram for malignant neoplasm of breast (principal)
CPT/HCPCS: 77063; 77067

== ENCOUNTER 2024-03-22 11:29 | Outpatient (CLI) | payer MEDICARE, MEDICAID, SELFPAY ==
--- NOTE | ~2024-03-22 | XR_ITS ---
3 VIEWS LUMBAR SPINE Ordering provider: Matt Cevallos, CARTON WRAPPER History: . Chronic low back pain . Comparison: None. FINDINGS: VERTEBRAL BODIES:Dextroscoliosis. Degenerative changes of the spine. Attempt of sacralization of L5. No visible fracture or subluxation. DISK SPACES: Narrowing of the disc T10-T11, T11-T12, T12-L1, L1-2, L2-L3, and L4-L5. Multilevel facet joint disease. SOFT TISSUES: Vascular calcifications. IMPRESSION: No acute osseous abnormality lumbar spine. Multilevel degenerative disc disease.. Reviewed, dictated and finalized at location A.
--- NOTE | ~2024-03-22 | XR_ITS ---
XR sacrum coccyx min 2V Ordering provider: Matt Cevallos, MECHANICAL PENCILS ASSEMBLER History: . Chronic low back pain . Comparison: None. FINDINGS: BONES: No acute fracture or dislocation. transitional vertebra is noted. JOINTS: The sacroiliac joint spaces are normal. SOFT TISSUES: Soft tissues are normal. Pubic symphysitis. Bilateral hip osteoarthritic changes. IMPRESSION: No acute osseous abnormality sacrum and coccyx. Reviewed, dictated and finalized at location A.
== END 2024-03-22 11:30 | disposition home or self-care (01) ==
LOC: MICIMG 11:30
PROVIDERS: PCP Family Medicine; Visit Provider Registered Nurse
DX: M54.50 Low back pain, unspecified (principal)
CPT/HCPCS: 72100; 72220

== ENCOUNTER 2024-04-26 11:22 | Outpatient (CLI) | payer MEDICARE, MEDICAID, SELFPAY ==
--- NOTE | ~2024-04-26 | XR_ITS ---
Right foot Technique: AP, oblique, and lateral views were obtained. Clinical History: Pain Findings: No acute fracture or dislocation is seen. There is severe degenerative change of the first MTP joint. Soft tissues are unremarkable. Impression: Severe degenerative change of the first MTP joint. Reviewed, dictated and finalized at location . NICAL DOCUMENT WRITER Impression: Severe degenerative change of the first MTP joint.
== END 2024-04-26 11:23 | disposition home or self-care (01) ==
PROVIDERS: PCP Family Medicine; Visit Provider Registered Nurse
DX: M19.071 Primary osteoarthritis, right ankle and foot (principal)
CPT/HCPCS: 73630

== ENCOUNTER 2024-05-11 09:53 | Emergency (ER) | payer MEDICARE, MEDICAID, SELFPAY ==
--- NOTE | ~2024-05-11 | US_ITS ---
RIGHT LOWER EXTREMITY VENOUS ULTRASOUND Ordering provider: Calin Louis PA-C History: . RLE swelling, pain, rule out DVT . Comparison: None. FINDINGS: --COMMON FEMORAL: Patent and free of thrombus. Normal compressibility, phasic flow and augmentation. --PROXIMAL SUPERFICIAL FEMORAL: Patent and free of thrombus. Normal compressibility, phasic flow and augmentation. --DISTAL SUPERFICIAL FEMORAL: Patent and free of thrombus. Normal compressibility, phasic flow and au gmentation. --POPLITEAL: Patent and free of thrombus. Normal compressibility, phasic flow and augmentation. --POSTERIOR TIBIAL: Patent and free of thrombus. Normal compressibility, phasic flow and augmentation . IMPRESSION: Negative right lower extremity venous US. No deep vein thrombosis. Reviewed, dictated and finalized at location A. NATOR
[2024-05-11 10:11] VITALS: BP 151/62; PULSE 81; RESP 18; TEMP 36.6; O2SAT 97
--- NOTE | 2024-05-11 10:18 | ED.EXTPRO ---
HPI - Extremity Problem General Chief complaint: Extremity Problem,Nontraumatic Stated complaint: leg infection Time Seen by Provider: 05/11/24 10:18 Focused HPI: This is a 78-year-old female who presents to the ED for chief complaint of right lower leg/calf pain over the past 3 weeks. Reports that she has had knee area that has bothered her focally to the right lower leg that her primary has been treating with antibiotics over the past 3 weeks. States that she called because it was still bothering her so they told her to come to the ER for IV antibiotics. Denies fevers, chills, nausea, vomiting. Denies any history of blood clot. No recent surgeries or hospitalizations GENERAL: Well-appearing, well-nourished, and in no acute distress. HEAD: Normocephalic, atraumatic. CHEST: Clear to auscultation. No respiratory distress. HEART: Regular rate and rhythm. NEURO: Alert and oriented x3. Patient screened in triage and initial orders placed. Additional care and disposition to be based upon diagnostic testing and treatment. Source: patient Mode of arrival: ambulatory Limitations: no limitations Related Data Home Medications Medication Instructions Recorded Confirmed buspirone 7.5 mg tablet 7.5 mg PO DAILY 08/23/20 03/25/23 diclofenac sodium 100 mg 100 mg PO DAILY 08/23/20 03/25/23 tablet,extended release 24 hr ascorbic acid (vitamin C) 500 mg 500 mg PO DAILY 08/06/22 03/25/23 capsule,extended release (Vitamin C) cetirizine 10 mg capsule (Zyrtec) 10 mg PO BID PRN Allergy Symptoms 08/06/22 03/25/23 ergocalciferol (vitamin D2) 1,250 1,250 mcg PO WEEKLY 08/06/22 03/25/23 mcg (50,000 unit) capsule (Vitamin D2) magnesium 200 mg tablet 200 mg PO DAILY 08/06/22 03/25/23 tramadol 50 mg tablet 50 mg PO Q6H PRN pain 08/06/22 03/25/23 Allergies Allergy/AdvReac Type Severity Reaction Status Date / Time celecoxib Allergy Severe CHEST PAINS Verified 05/11/24 09:54 adhesive tape Allergy Unknown Rash Verified 05/11/24 09:54 duloxetine Allergy Unknown Unknown Verified 05/11/24 09:54 iodine Allergy Unknown Hives Verified 05/11/24 09:54 losartan Allergy Unknown Diarrhea Verified 05/11/24 09:54 morphine Allergy Unknown Nausea and Verified 05/11/24 09:54 Vomiting naproxen Allergy Unknown Unknown Verified 05/11/24 09:54 nickel Allergy Unknown Rash Verified 05/11/24 09:54 shellfish derived Allergy Unknown Hives Verified 05/11/24 09:54 Tadhlrb-JAT-GkP Reductase Allergy Unknown Unknown Verified 05/11/24 09:54 Inhibitor [Wjkshbt-Cgh-Wcn Reductase Inhibitor] Review of Systems Review of Systems: All systems as dictated in [facility] Past Medical History Medical History Acute diarrhea Bilateral lower abdominal cramping Borborygmus Chronic GERD Liver lesion Pancreatic cyst Pancreatic lesion RUQ pain Surgical History Surgical History History of cholecystectomy History of total left knee replacement (2013) History of total right knee replacement (2016) Family History Family History Mother Family history of diabetes mellitus in first degree relative Family history of coronary artery disease Sibling Family history of diabetes mellitus in first degree relative Ovarian cancer Other Family history of arthritis Family history of osteoarthritis Hypertension Social History Social History Smoking status: Never smoker Second hand tobacco smoke exposure: Yes Alcohol intake: never Substance use: never Substance use type: does not use Living arrangements: with family Gender identity (if verbalized by the patient): Female Spiritual care concerns: No Exam Narrative: GENERAL: Well-appearing, well-nourished, and in no acute distress. HEAD: Normocephalic, atraumatic. EYES: PERRLA and EOMI. ENT: Nares clear, no rhinorrhea or epistaxis. Mucous membranes moist. Oropharynx without tonsillar hypertrophy exudate or other lesions. NECK: Supple. No adenopathy or masses. CHEST: No respiratory distress. Clear to auscultation. No wheezes rales or rhonchi HEART: Regular rate and rhythm. No murmur heard. Normal peripheral pulses. ABDOMEN: Soft, nontender, nondistended, normal active bowel sounds. MSK: Normal range of motion. Bilateral 1+ pitting edema to the lower extremities from ankle to calf. There is bilateral mild erythema but no warmth or tenderness to the lower extremities. SKIN: Warm, dry, no rash. NEURO: Alert and oriented x4. No focal deficits. PSYCH: Normal mood and affect. Course Vital Signs Vital signs: Vital Signs Temperature 97.8 F 05/11/24 10:11 Pulse Rate 81 05/11/24 10:11 Respiratory Rate 18 05/11/24 10:11 Blood Pressure 151/62 H 05/11/24 10:11 Pulse Oximetry 97 05/11/24 10:11 Oxygen Delivery Room Air 05/11/24 10:11 Temperature 98 F 05/11/24 11:44 Pulse Rate 78 05/11/24 11:44 Respiratory Rate 18 05/11/24 11:44 Blood Pressure 155/86 H 05/11/24 11:44 Pulse Oximetry 98 05/11/24 11:44 Oxygen Delivery Room Air 05/11/24 10:11 MDM - Extremity (Nontraumatic) MDM Narrative Medical decision making narrative: This is a 78-year-old female who presents to the ED for chief complaint of right lower extremity pain for several weeks. Vitals are normal. Exam shows bilateral pitting edema to the lower extremities with mild dependent erythema. Exam is most consistent with venous insufficiency. Minimal evidence for DVT or cellulitis today. Lab work is unremarkable overall plan Ultrasound Doppler right lower extremity does not reveal any acute findings. Recommend that patient use compression stockings for probable diagnosis of venous insufficiency Patient will be discharged in stable condition. Supportive measures discussed and return precautions given. Patient is understanding and agreeable with plan for discharge with PCP follow-up. Lab Data 05/11/24 11:04 05/11/24 11:04 Labs: Lab Results 05/11/24 Range/Units 11:04 WBC 4.9 (4.5-10.0) K/mm3 RBC 4.38 (4.2-5.4) M/mm3 Hgb 13.0 (12.0-15.0) g/dL Hct 38.1 (37.0-47.0) % MCV 87.0 (80-100) fl MCH 29.7 (26-34) pg MCHC 34.1 (32-36) g/dl RDW 13.9 (11.5-14.5) % Plt Count 190 (150-375) k/mm3 MPV 9.3 (7.4-10.4) fl Immature Gran % (Auto) 0.2 (0-0.5) % Neut % (Auto) 64.4 (45.5-73.1) % Lymph % (Auto) 25.8 (18.3-44.2) % Trinity % (Auto) 7.8 (2.6-8.5) % Eos % (Auto) 1.0 (0-4.4) % Baso % (Auto) 0.8 (0.2-1.2) % Lymph # (Auto) 1.26 (0.9-3.2) K/mm3 Trinity # (Auto) 0.4 (0.1-0.6) K/mm3 Eos # (Auto) 0.1 (0-0.3) K/mm3 Baso # (Auto) 0.0 (0.0-0.1) K/mm3 Abs Immat Gran (auto) 0.01 (0.00-0.031) K/mm3 Absolute Neuts (auto) 3.2 (1.3-6.7) K/mm3 Absolute Nucleated RBC 0.000 (0.0-0.012) K/mm3 Nucleated RBC % 0.0 (0.0-0.2) % PT 13.7 (11.1-14.7) Seconds INR 1.0 APTT 26.4 (22.3-36.8) Seconds Sodium 132 L (137-145) mmol/L Potassium 4.5 (3.4-5.0) mmol/L Chloride 99 (98-107) mmol/L Carbon Dioxide 25 (22-30) mmol/L Anion Gap 8 (4-12) mmol/L BUN 27 H (7-17) mg/dL Creatinine 1.10 H (0.7-1.0) mg/dL Estim Creat Clear Calc 48 ml/min Estimated GFR 48 L (59 - ) Glucose 112 H (65-110) mg/dL Calcium 9.3 (8.4-10.2) mg/dL Total Bilirubin 0.5 (0.2-1.3) mg/dL AST 25 (14-36) U/L ALT 17 (6-35) U/L Alkaline Phosphatase 71 (38-126) U/L Total Protein 7.0 (6.3-8.2) g/dL Albumin 4.4 (3.5-5.1) g/dL Discharge Plan Discharge Clinical Impression: Venous insufficiency Patient Disposition: Home, Self-Care Condition: Stable Instructions: Antibiotic Form Additional Instructions: Your exam and imaging today are reassuring overall. Feel that this is likely venous insufficiency and should be treated with compression stockings. Follow-up with PCP on this issue If you have any new or worsening symptoms please return to the ER for further evaluation. Prescriptions: No Action ascorbic acid (vitamin C) [Vitamin C] 500 mg capsule, extended release 500 mg PO DAILY ergocalciferol (vitamin D2) [Vitamin D2] 1,250 mcg (50,000 unit) capsule 1,250 mcg PO WEEKLY Hold Instructions: Patient no longer taking Zyrtec 10 mg capsule 10 mg PO BID PRN (Reason: Allergy Symptoms) magnesium 200 mg tablet 200 mg PO DAILY tramadol 50 mg tablet 50 mg PO Q6H PRN (Reason: pain) cyclobenzaprine 5 mg tablet 5 mg PO TID PRN (Reason: muscle spasm) Qty: 30 0RF diclofenac sodium 100 mg tablet extended release 24 hr 100 mg PO DAILY buspirone 7.5 mg tablet 7.5 mg PO DAILY Hold Instructions: Patient no longer taking ondansetron 4 mg tablet,disintegrating 4 mg PO Q8H PRN (Reason: nausea and vomiting) Qty: 10 0RF omeprazole 20 mg capsule,delayed release(DR/EC) 20 mg PO DAILY Qty: 90 2RF hydrochlorothiazide 25 mg tablet 25 mg PO DAILY Qty: 90 0RF lisinopril 40 mg tablet 40 mg PO DAILY Qty: 90 0RF Hold Instructions: Patient no longer taking Follow-up/Referrals: Sergey Rodriguez MD [Primary Care Provider] - Time of Disposition: 11:37
[2024-05-11 11:09] LABS: Basophils Percent Auto 0.8 % (0.2-1.2); Eosinophils Absolute Auto 0.1 K/mm3 (0-0.3); Hematocrit 38.1 % (37.0-47.0); Immature Granulocyte Absolute 0.01 K/mm3 (0.00-0.031); Immature Granulocyte Percent A 0.2 % (0-0.5); Lymphocytes Absolute Auto 1.26 K/mm3 (0.9-3.2); Lymphocytes Percent Auto 25.8 % (18.3-44.2); Mean Corpuscular HGB Conc 34.1 g/dl (32-36); Mean Corpuscular Hemoglobin 29.7 pg (26-34); Mean Platelet Volume 9.3 fl (7.4-10.4); Monocytes Absolute Auto 0.4 K/mm3 (0.1-0.6); Monocytes Percent Auto 7.8 % (2.6-8.5); Neutrophils Absolute Auto 3.2 K/mm3 (1.3-6.7); Neutrophils Percent Auto 64.4 % (45.5-73.1); Platelet Count Result 190 k/mm3 (150-375); Red Blood Count 4.38 M/mm3 (4.2-5.4); Red Cell Distribution Width 13.9 % (11.5-14.5); White Blood Count 4.9 K/mm3 (4.5-10.0)
[2024-05-11 11:20] LABS: Partial Thromboplastin Time 26.4 Seconds (22.3-36.8); Prothrombin Time 13.7 Seconds (11.1-14.7)
[2024-05-11 11:22] LABS: Alanine Aminotransferase 17 U/L (6-35); Albumin Level 4.4 g/dL (3.5-5.1); Alkaline Phosphatase 71 U/L (38-126); Anion Gap 8 mmol/L (4-12); Aspartate Amino Transferase 25 U/L (14-36); Bilirubin,Total 0.5 mg/dL (0.2-1.3); Blood Urea Nitrogen 27 mg/dL (7-17); Calcium 9.3 mg/dL (8.4-10.2); Carbon Dioxide 25 mmol/L (22-30); Chloride 99 mmol/L (98-107); Estimated CRCL calculation 48 ml/min; Estimated Glomerular Filt Rate 48; Glucose 112 mg/dL (65-110); Potassium 4.5 mmol/L (3.4-5.0); Sodium 132 mmol/L (137-145)
[2024-05-11 11:44] VITALS: BP 155/86; PULSE 78; RESP 18; TEMP 36.6; O2SAT 98
== END 2024-05-11 11:45 | disposition home or self-care (01) ==
PROVIDERS: Emergency Provider Physician Assistant; PCP Family Medicine
DX: I87.2 Venous insufficiency (chronic) (peripheral) (principal); Z96.653 Presence of artificial knee joint, bilateral
CPT/HCPCS: 36415; 80053; 85025; 85610; 85730; 93971; 99284

== ENCOUNTER 2025-01-20 11:29 | Outpatient (CLI) | payer MEDICARE, MEDICAID, SELFPAY ==
--- NOTE | ~2025-01-20 | XR_ITS ---
Left Knee Technique: AP, lateral, and sunrise views were obtained. Clinical History: Pain Findings: No fracture or dislocation is seen. Left knee arthroplasty in place. Soft tissues are unrem arkable. No joint effusion is seen. Impression: No acute abnormality. Left knee arthroplasty in place. Reviewed, dictated and finalized at location . Impression: No acute abnormality. Left knee arthroplasty in place.
== END 2025-01-20 11:30 | disposition home or self-care (01) ==
LOC: MICIMG 11:32
PROVIDERS: PCP Family Medicine; Visit Provider Nurse Practitioner Family
DX: M25.562 Pain in left knee (principal); Z96.652 Presence of left artificial knee joint
CPT/HCPCS: 73562

== ENCOUNTER 2025-02-09 13:09 | Outpatient (CLI) | payer MEDICARE, MEDICAID, SELFPAY ==
--- NOTE | ~2025-02-09 | US_ITS ---
EXAMINATION: US renal BI DATE: 02/09/2025 14:25 INDICATION: Stage IIIa chronic kidney disease TECHNIQUE: Multiple ultrasound grayscale images of the kidneys were obtained. COMPARISON: None. FINDINGS: The right kidney is not visualized and reportedly post right nephrectomy 2 years prior. The left kidney measures 12.1 x 5.3 x 5.8 cm. Left kidney demonstrates normal echogenicity. No stones identified. No hydronephrosis at the left kidney. Left-sided ureteral jets visualized on color Doppler within the normal bladder. IMPRESSION: 1. Status post right nephrectomy. Normal left kidney without hydronephrosis. Reviewed, dictated and finalized at location A.
--- OUTSIDE RECORDS SUMMARY | 2025-02-09 13:25 | XMS_ITS | Encounter Summary ---
Author Organization [facility] Health Address [address] [place] [address] Care Team Providers Care Top Ironer Name Role Phone Rigo Mcnamara MD Unavailable [phone] Maria Del Rosario Duenas MD Primary Care Provider + Encounter Details Date Type Department Care Team (Late st Contact Info) Description 01/05/2013 [facility] Outpatient Visit EXTERNAL NON-[facility] DEPT Unknown, Provider Social History Tobacco Use Types Packs/Day Years Used Date Smoking Tobacco: Never Smokeless Tobacco: Never Comments: SMOKES IN T HE HOUSE Alcohol Use Standard Drinks/Week Comments No 0 (1 standard drink = 0.6 oz pur e alcohol) Comments No Sex and Gender Information Value Date Recorded Sex Assigned at Not on file Legal Sex Female 2:01 PM PROVIDER NETWORK MANAGER Gender Identity Not on file Sexual Orientation Not on file documented as of this encounter Plan of Treatment Not on file documented as of this encounter Visit Diagnoses Not on filedocumented in this encounter Care Teams Top Ironer Relationship Specialty Start Date End Date Maria Del Rosario Duenas MD [address] [place] [address] PCP - General 03/03/12 Rigo Mcnamara MD Orthopedic Surgery 03/03/12 documented as of this encounter
--- OUTSIDE RECORDS SUMMARY | 2025-02-09 13:25 | XMS_ITS | Encounter Summary ---
Author Organization [facility] Health Address [address] [place] [address] Care Team Providers Care Switchboard And Control Room Operator Name Role Phone Rigo Mcnamara MD Unavailable Maria Del Rosario Duenas MD Primary Care Provider + Encounter Details Date Type Department Care Team (Late st Contact Info) Description 01/07/2013 [facility] Outpatient Visit EXTERNAL NON-[facility] DEPT Unknown, Provider Social History Tobacco Use Types Packs/Day Years Used Date Smoking Tobacco: Never Smokeless Tobacco: Never Comments: SMOKES IN T HE HOUSE Alcohol Use Standard Drinks/Week Comments No 0 (1 standard drink = 0.6 oz pur e alcohol) Comments No Sex and Gender Information Value Date Recorded Sex Assigned at Not on file Legal Sex Female 2:01 PM PLATFORM OPERATIONS DIRECTOR Gender Identity Not on file Sexual Orientation Not on file documented as of this encounter Plan of Treatment Not on file documented as of this encounter Visit Diagnoses Not on filedocumented in this encounter Care Teams Switchboard And Control Room Operator Relationship Specialty Start Date End Date Maria Del Rosario Duenas MD [address] [place] [address] PCP - General 03/03/12 Rigo Mcnamara MD Orthopedic Surgery 03/03/12 documented as of this encounter
--- OUTSIDE RECORDS SUMMARY | 2025-02-09 13:25 | XMS_ITS | Clinical Summary ---
Author Organization [facility] Address [address] [place] [address] Care Team Providers Care Food Production Machine Operator Name Role Phone Rigo Mcnamara MD Unavailable [phone] Maria Del Rosario Duenas MD Primary Care Provider + Source Comments [facility],non-owned Affiliates and Associated Physician Practices is amultiple site organization consisting of ambulatory clinics and hospital sitesin [place], [place], [place] and [place]. This disclosure is being madepursuant to the Care Everywhere program and may not contain all information available regarding this patient. Last updated 18.[facility] Allergies Active Allergy Reactions Criticality Noted Date Comments Adhesive Sensitivity Rash Low 03/03/2012 Celecoxib 12/03/2012 AFFECTS MY HEART Contrast-Iodinated Agents For Ct/Other Rash Low 03/03/2012 Duloxetine Diarrhea 03/03/2012 Losartan 12/03/2012 SWELLING OF TONGUE AND SORE THROAT Morphine Nausea and/or Vomiting 03/03/2012 Nickel Rash Low 03/03/2012 Medications * Be aware that medications may not be up to date on this document. Alwaysverify current medications with the patient. Multiple Vitamins-Minera ls (CENTRUM SILVER) TABS Take 1 Tab by mouth daily with food. Active calcium carbonate-vitam in D (OS-NOEL 500 + D) 500-200 MG-UNIT tablet Take 1 Tab by mouth 2 times daily. Active omeprazole (PRILOSEC) 20 MG capsule Take 20 mg by mouth daily before breakfast. Instructed to take AM of surgery Active busPIRone (BUSPAR) 7.5 MG tablet Take 7.5 mg by mouth once daily after breakfast. Active cetirizine (ZYRTEC) 10 MG tablet Take 10 mg by mouth once daily. Active Nutritional Supplements (ESTROVEN PO) Take by mouth once daily. Active hydrochlorothia zide (HYDRODIURIL) 12.5 MG TABS Take 12.5 mg by mouth once daily. Active acetaminophen (TYLENOL) 325 MG tablet Take 2 Tabs by mouth every 4 hours as needed. Maximum allowable Acetaminophen amount = 4 Grams (4000 mg) / 24 hours. 3 Active amoxicillin (AMOXIL) 500 MG capsule Take 4 Caps by mouth pre-Procedure once for 1 dose. Take 4 pills 1hr prior to dental appointment 12 Cap 1 5 Active Active Problems Problem Noted Date Diagnosed Date Knee joint replacement by other means 01/25/2013 Essential hypertension 03/03/2012 Overview (03/23/2015): Depressive disorder, not elsewhere classified Osteoarthrosis involving lower leg 03/03/2012 Overview (09/16/2015): 2015 IMO Updt Social History Tobacco Use Types Packs/Day Years Used Date Smoking Tobacco: Never Smokeless Tobacco: Never Comments: SMOKES IN T HE HOUSE Alcohol Use Standard Drinks/Week Comments No 0 (1 standard drink = 0.6 oz pur e alcohol) Comments No Sex and Gender Information Value Date Recorded Sex Assigned at Not on file Legal Sex Female 2:01 PM MARKETING SUPPORT MANAGER Gender Identity Not on file Sexual Orientation Not on file Last Filed Vital Signs Vital Sign Reading Time Taken Comments Blood Pressure 129/68 12/20/2012 5:49 AM CDT Pulse 88 12/20/2012 5:49 AM CDT Temperature 37.1 C (98.8 F) 12/20/2012 5:49 AM CDT Respiratory Rate 18 12/20/2012 5:49 AM CDT Oxygen Saturation 100% 12/20/2012 5:49 AM CDT Inhaled Oxygen Concentration - - Weight 93 kg (205 lb) 12/17/2012 9:37 AM CDT Height 180.3 cm (5' 11) 12/17/2012 9:37 AM CDT Body Mass Index 28.59 12/17/2012 9:37 AM CDT Plan of Treatment Health Maintenance Due Date Last Done Comments BONE DENSITY TESTING 1945 HEPATITIS C SCREENING 05/20/1964 DTAP/TDAP/TD VACCINES (1 - Tdap) 1965 PNEUMOCOCCAL VACCINE 50+ (1 of 1 - PCV) 1996 ZOSTER VACCINE (1 of 2) 1996 Respiratory Syncytial Virus (RSV) Vaccine Pt: or over 60 yrs (1 - 1-dose 75+ series) 2021 COVID-19 VACCINE (1 - 2023-2 5 season) 2024 DEPRESSION SCREENING 06/23/2024 MEDICARE AWV CALENDAR YEAR 2024 INFLUENZA VACCINE (#1) 2025 , 03/30/2015 HEPATITIS B VACCINE Aged Out No longe r eligible based on patient's age to complete this topic HIB VACCINE Aged Out No longer eligi ble based on patient's age to complete this topic HPV VACCINE Aged Out No longer eligi ble based on patient's age to complete this topic MENINGOCOCCAL (Group B) VACCINE SHARED DECISION-MAKING Aged Out No longer eligible based on patient's age to complete this topic MENINGOCOCCAL GROUPS A/C/Y/W VACCINE Aged Out No longer eligible b ased on patient's age to complete this topic Medical Devices Implanted Type Area Tele Grout Sewer Line Repairer Device Identifier Shelf Expiration Date Model / Serial / Lot Darnell Bone [place] Hv Implanted:Qty: 1 on 12/17/2012 by Rigo Mcnamara MD at [facility] Left: Knee [employer] 06/21/2014 [id number] / / [id number] Biomet Modular Tibial Component Implanted:Qty: 1 on 12/17/2012 by Rigo Mcnamara MD at [facility] Left: Knee 11/19/2022 [id number] / / [id number] Biomet Primary Tibial Plate Implanted:Qty: 1 on 12/17/2012 by Rigo Mcnamara MD at [facility] Left: Knee 07/22/2022 [id number] / / [id number] Custom Titanium Vanguard Cr Femoral Implant Implanted:Qty: 1 on 12/17/2012 by Rigo Mcnamara MD at [facility] Left: Knee 07/22/2022 [id number] / / [id number] Biomet Arcom Patella Implanted:Qty: 1 on 12/17/2012 by Rigo Mcnamara MD at [facility] Left: Knee 10/20/2017 [id number] / / [id number] Rod Villarreal Brg 10mm X 75mm Implanted:Qty: 1 on 12/17/2012 by Rigo Mcnamara MD at [facility] Left: Knee [employer] 10/20/2017 [id number] / / [id number] Darnell Bone [place] Hv Implanted:Qty: 1 on 12/17/2012 by Rigo Mcnamara MD at [facility] Left: Knee [employer] 06/21/2014 [id number] / / [id number] Insurance HUMANA MEDICARE ADV HMO & PPO [facility] Advance Directives * FULL RESUSCITATION (Latest Code Status on File) Date Activated Date Inactivated Comments 12/17/2012 3:35 PM 12/20/2012 12:08 PM Care Teams Food Production Machine Operator Relationship Specialty Start Date End Date Maria Del Rosario Duenas MD [address] [place] [address] PCP - General 03/03/12 Rigo Mcnamara MD Orthopedic Surgery 03/03/12
--- OUTSIDE RECORDS SUMMARY | 2025-02-09 13:25 | XMS_ITS | Clinical Summary ---
Author Organization [facility] Address [address] [place] [address] Phone Care Team Providers Care Chargemaster Specialist Name Role Phone Sergey Rodriguez MD Primary Care Provider [phone] Jaxson Hall MD Unavailable Allergies Active Allergy Reactions Criticality Noted Date Comments Celecoxib Palpitations Low 12/03/2012 AFFECTS MY HEART AFFECTS MY HEART Cephalexin Unknown 04/01/2023 Duloxetine Diarrhea 03/03/2012 Iodinated Contrast Media Rash Low 03/03/2012 Losartan Unknown 12/03/2012 SWELLING OF TONGUE AND SORE THROAT SWELLING OF TONGUE AND SORE THROAT Morphine Vomiting 03/03/2012 Naproxen Unknown 04/01/2023 Nickel Unknown,Rash Low 03/03/2012 Other-Environmental Allergen (Not Found In Search) Unknown 04/01/2023 Adhesive tape Wound Dressing Adhesive Rash Low 03/03/2012 Medications acetaminophen (TYLENOL) 650 MG Tablet Controlled Release Take 1,300 mg by mouth in the morning and at bedtime. Active busPIRone (BUSPAR) 15 MG Tablet Take 15 mg by mouth 2 times daily. 3 Active ALPRAZolam (XANAX) 0.5 MG Tablet TAKE 1 TABLET BY MOUTH EVERY 24 HOURS NEEDED FOR ANXIETY 3 Active Calcium Carbonate-Vitami n D 500-5 MG-MCG Tablet Take 1 Tablet by mouth. Active cyclobenzaprine (FLEXERIL) 10 MG Tablet as needed. 2 Active Vitamin D3 1000 UNIT Tablet Take 1 Tablet by mouth. Active cetirizine (ZyrTEC) 10 MG Tablet Take 10 mg by mouth in the morning and at bedtime. Active famotidine (PEPCID) 40 MG Tablet Take 40 mg by mouth every evening. 3 Active hydroCHLOROthiaz frank 25 MG Tablet Take 25 mg by mouth daily. 3 Active Homeopathic Products (Leg Cramps) Tablet Take 2 Tablets by mouth nightly. Active lisinopril (PRINIVIL, ZESTRIL) 40 MG Tablet Take 40 mg by mouth every morning. 3 Active Multivitamin-Min erals Tablet Take 1 Tablet by mouth. INSTRUCTED TO HOLD FOR 3 DAYS PRIOR TO SURGERY ON 04/16/2023 Active Magnesium 200 MG Tablet Take 200 mg by mouth. Active omeprazole (PriLOSEC) 20 MG CAPSULE DELAYED RELEASE every morning. 3 Active ondansetron (ZOFRAN-ODT) 4 MG TABLET DISPERSIBLE every morning. 3 Active traMADol (ULTRAM) 50 MG Tablet Take 50 mg by mouth as needed. 3 Active Potassium 99 MG Tablet Take 1 Tablet by mouth daily. Active oxyCODONE (ROXICODONE) 5 MG TabletIndication s:Right renal mass Take 1 Tablet by mouth every 4 hours as needed for Severe pain. 10 Tablet 3 Active Ferrous Sulfate (IRON PO) Take by mouth. Activ e amLODIPine (NORVASC) 5 MG Tablet Take 5 mg by mouth daily. 4 Active Active Problems Problem Noted Date Diagnosed Date Renal mass 04/16/2023 Family History Medical History Relation Name Comments Cancer Father BLOOD CANCER Diabetes Mother Heart Disease Mother Hypertension Mother Osteoporosis Mother Stroke Mother Relation Name Status Comments Father Mother Social History Tobacco Use Types Packs/Day Years Used Date Smoking Tobacco: Never Smokeless Tobacco: Never Tobacco Cessation:Counseling Given: No Alcohol Use Standard Drinks/Week Comments Never 0 (1 standard drink = 0.6 oz pur e alcohol) Comments No Sex and Gender Information Value Date Recorded Sex Assigned at Not on file Legal Sex Female 2:58 PM CDT Gender Identity Not on file Sexual Orientation Not on file Last Filed Vital Signs Vital Sign Reading Time Taken Comments Blood Pressure 125/74 05/06/2024 11:00 AM WAX BLEACHER Pulse 65 05/06/2024 11:00 AM WAX BLEACHER Temperature 37.1 C (98.8 F) 04/17/2023 8:14 AM CDT Respiratory Rate 19 05/06/2024 11:00 AM WAX BLEACHER Oxygen Saturation 97% 05/06/2024 11:00 AM WAX BLEACHER Inhaled Oxygen Concentration - - Weight 89.8 kg (198 lb) 05/06/2024 11:00 AM WAX BLEACHER Height 180.3 cm (5' 11) 05/06/2024 11:00 AM WAX BLEACHER Body Mass Index 27.62 05/06/2024 11:00 AM WAX BLEACHER Plan of Treatment Upcoming Encounters Date Type Department Care Team (Late st Contact Info) Description 05/12/2025 10:30 AM WAX BLEACHER Office Visit [facility] [address] [place] [address] Jaxson Hall MD [address] [facility], [address] [address] Health Maintenance Due Date Last Done Comments DEXA Bone Density 1945 Hepatitis C Virus (HCV) Screening 1945 TdaP Immunization 1945 Pneumococcal Immunization (50+ years) (1 of 1 - PCV) 1996 Respiratory Syncytial Virus (RSV) Immunization (Adult) (1 - 1-dose 75+ series) 2021 SARS-COV-2 Immunization ( season) 2024 03/24/2022, 04/23/2021, 09/12/2020, Additional history exists Influenza Immunization (#1) 02/21/202507/2021, 04/06/2021, 04/15/2019, Additional history exists Zoster Immunization Completed 03/04/2018, 01/06/2018, 07/23/2013 Hepatitis B Immunization Aged Out No longer eligible based on patient's age to complete this topic Human Papillomavirus (HPV) Immunization Aged Out No longer eligible based on patient's age to complete this topic Meningococcal Immunization (ACWY) Aged Out No longer eligible based on patient's age to complete this topic Rotavirus Immunization Aged Out No lo nger eligible based on patient's age to complete this topic Insurance MEDICARE C [place]ICAID [place] Care Teams Chargemaster Specialist Relationship Specialty Start Date End Date Sergey Rodriguez MD [address] [address] PCP - General Family Medicine 03/31/23 Jaxson Hall MD [address] [address] Consulting Physician Urology 04/03/23
--- OUTSIDE RECORDS SUMMARY | 2025-02-09 13:25 | XMS_ITS | Clinical Summary ---
Author Organization [facility] Address [address] [place] [address] Care Team Providers Care Hardware Developer Name Role Phone Sergey Rodriguez MD Primary Care Provider [phone] Medications acetaminophen (TYLENOL) 500 mg tablet Take 1 tablet (500 mg total) by mouth every 6 (six) hours as needed for pain Active busPIRone (BUSPAR) 30 mg tablet Take 1 tablet (30 mg total) by mouth 2 (two) times a day Active cetirizine (ZyrTEC) 10 mg chewable tablet Take 1 tablet (10 mg total) by mouth daily Active hydroCHLOROthia zide (HYDRODIURIL) 25 mg tablet Take 1 tablet (25 mg total) by mouth daily Active lisinopriL (PRINIVIL,ZESTR [place]) 40 mg tablet Take 1 tablet (40 mg total) by mouth daily Active magnesium gluconate 200 mg tabletIndicatio ns:hypomagnesem ia 1 tablet (200 mg total) Active omeprazole (PriLOSEC) 40 mg capsule Take 1 capsule (40 mg total) by mouth daily Active mv,Ca,min-iron- FA-lycopene 8 mg iron- 200 mcg-600 mcg tablet Take by mouth Active Active Problems Problem Noted Date Diagnosed Date Essential hypertension 03/03/2024 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 She does not utilize any formal type of compression therapy due to discomfort with compression therapy. No surgical or procedural intervention indicated at this time. Patient to follow up in the office on a as needed basis Assessment & Plan (01/21/2024 2:49 PM CDT): Bulky varicosities noted to both calves extending up into the thighs. Left is worse than the right. She is tried compression stockings which have caused more discomfort in the past. Will attempt to try a different form of compression therapy and will obtain venous reflux follow-up in 1 month. Other secondary hypertension 01/21/2024 Social History Tobacco Use Types Packs/Day Years Used Date Smoking Tobacco: Never Assessed Comments Unknown Sex and Gender Information Value Date Recorded Sex Assigned at Not on file Legal Sex Female 9:06 AM NURSE CASE MANAGER Gender Identity Not on file Sexual Orientation Not on file Obstetrics History Last Filed Vital Signs Vital Sign Reading Time Taken Comments Blood Pressure 127/73 03/03/2024 9:06 AM CDT Pulse 65 03/03/2024 9:06 AM CDT Temperature - - Respiratory Rate - - Oxygen Saturation 97% 03/03/2024 9:06 AM CDT Inhaled Oxygen Concentration - - Weight - - Height - - Body Mass Index - - Plan of Treatment Health Maintenance Due Date Last Done Comments Depression Screening 1945 Fall Risk Assessment 1945 Hepatitis C Screening 1945 Osteoporosis Screening-Bone Density Scan 1945 DTaP/Tdap/Td Vaccine (1 - Tdap) 1957 Hepatitis B Screening 1964 Pneumococcal vaccine 65+ (1 of 1 - PCV) 1996 Well Visit 65+ 2011 Covid-19 Vaccine (5 - 2023-2 5 season) 2024 03/24/2022, 04/23/2021, 09/12/2020, Additional history exists Influenza Vaccine (#1) 2025 , 04/06/2021, 04/15/2019, Additional history exists Zoster Vaccine Completed 03/04/2018, 12/21, 07/23/2013 Insurance [facility] MEDICARE HMO IDPA Care Teams Hardware Developer Relationship Specialty Start Date End Date Sergey Rodriguez MD PCP - General Family Medicine 08/10/21
--- OUTSIDE RECORDS SUMMARY | 2025-02-09 13:26 | XMS_ITS | Encounter Summary ---
Author Organization [facility] Address [address] [place] [address] Phone Care Team Providers Care Environmental Lead Name Role Phone Sergey Rodriguez MD Primary Care Provider [phone] Jaxson Hall MD Unavailable Reason for Referral * Radiology Services (Routine) - Closed Specialty Diagnoses / Procedures Referred By Javier miranda Referred To Contact Radiology Diagnoses Right renal mass Pre-op testing Procedures EKG 12 LEAD Nirmal Acosta MD [address] [address] Phone: tel: fax: Referral ID Status Reason Start Date Expiration Date Visits Re quested Visits Authorized [id number] Closed 04/07/2023 1 1 Encounter Details Date Type Department Care Team (Late st Contact Info) Description 04/07/2023 Transcribe Orders [facility] Preop/Pacu II [address] [place] [address] Nirmal Acosta MD [address] [address] Right renal mass (Primary Dx); Pre-op testing Social History Tobacco Use Types Packs/Day Years Used Date Smoking Tobacco: Never Smokeless Tobacco: Never Alcohol Use Standard Drinks/Week Comments Never 0 (1 standard drink = 0.6 oz pur e alcohol) Comments No Sex and Gender Information Value Date Recorded Sex Assigned at Not on file Legal Sex Female 2:58 PM CDT Gender Identity Not on file Sexual Orientation Not on file COVID-19 Exposure Response Date Recorded In the last 10 days, have yo u been in contact with someone who was confirmed or suspected to have Coronavirus/COVID-19? No / Unsure 04/03/2023 9:50 AM CDT documented as of this encounter Plan of Treatment Upcoming Encounters Date Type Department Care Team (Late st Contact Info) Description 05/12/2025 10:30 AM COMPUTERIZED TABLE CUTTER Office Visit [facility] [address] [place] [address] Jaxson Hall MD [address]2 [facility], [address] [address] documented as of this encounter Results * EKG 12 LEAD (04/14/2023 10:10 AM CDT) Ventricular Rate 60 BPM EXTERNAL EKG Atrial Rate 60 BPM EXTERNAL EKG P-R Interval 196 ms EXTERNAL EKG QRS Duration 88 ms EXTERNAL EKG Q-T Duration 390 ms EXTERNAL EKG QTC CALCULATION 390 ms EXTERNAL EKG P Bud 79 degrees EXTERNAL EKG R Bud 74 degrees EXTERNAL EKG T Bud 55 degrees EXTERNAL EKG 04/14/2023 10:1 0 AM CDT Impressions EXTERNAL EKG - 04/14/2023 11:47 AM CDT Normal sinus rhythm Normal ECG No previous ECGs available Confirmed by Felix Monaco ([id number]) on 04/14/2023 11:47:11 AM Narrative Procedure Note Felix Urban MD - 04/14/2023 IMPRESSION: Normal sinus rhythm Normal ECG No previous ECGs available Confirmed by Felix Monaco ([id number]) on 04/14/2023 11:47:11 AM us Nirmal Lund MD IMG ECG ORDERABLES Final Resul t EXTERNAL EKG * TYPE & SCREEN (CROSSMATCH CONVERTIBLE) (04/14/2023 10:05 AM CDT) ABO TYPING A 04/14/2023 11:25 AM CDT [facility] RH Positive 04/14/2023 11:25 AM CDT [facility] ABSC Negative 04/14/2023 11:25 AM CDT [facility] Blood Venipuncture / Unknown 04/14/2023 10:05 AM CDT 04/14/2023 10:19 AM CDT Nirmal Lund MD BLOOD BANK ORDERABLES Edited R esult - Final [facility] [address] [place] [address] * (ABNORMAL) BASIC METABOLIC PANEL W/ CALCIUM TOTAL (04/14/2023 10:05 AM CDT) Pathologist [facility] SODIUM 137 136 - 145 mmol/L 04/14/2023 10:45 AM CDT [facility] POTASSIUM 4.3 3.5 - 5.1 mmol/L 04/14/2023 10:45 AM CDT [facility] CHLORIDE 105 98 - 107 mmol/L 04/14/2023 10:45 AM CDT [facility] CO2, VENOUS 26 22 - 30 mmol/L 04/14/2023 10:45 AM CDT [facility] ANION GAP 10.3 <18.0 mmol/L 04/14/2023 10:45 AM CDT [facility] GLUCOSE 138(H) 70 - 99 mg/dL 04/14/2023 10:45 AM CDT [facility] BUN 9(L) 10 - 20 mg/dL 04/14/2023 10:45 AM CDT [facility] CREATININE, BLOOD 0.91 0.60 - 1.00 mg/dL 04/14/2023 10:45 AM CDT [facility] BUN/CREATININE RATIO 10(L) 12 - 20 ratio 04/14/2023 10:45 AM CDT [facility] CALCIUM 9.3 8.7 - 10.5 mg/dL 04/14/2023 10:45 AM CDT [facility] IS THE PATIENT REQUIRED TO BE FASTING? No 04/14/2023 10:45 AM CDT [facility] GFR, ESTIMATED >60 >=60 04/14/2023 10:45 AM CDT [facility] Comment: Creatinine Clearance is the preferred criteria for selecting drug dose adjustments in renally impaired patients. The GFR is provided as additional pertinent clinical information. GFR is reported in mL/min/1.73 sq m. Calculation based on the Chronic Kidney Disease Epidemiology Collaboration (CKD- EPI) equation refit without adjustment for race. GFR, EST. >60 >=60 023 10:45 AM CDT [facility] GFR, EST. NONAFRICAN 60 >=60 04/14/2023 10:45 AM CDT [facility] Blood Venipuncture / Unknown 04/14/2023 10:05 AM CDT 04/14/2023 10:20 AM CDT us Nirmal Lund MD CHEMISTRY ORDERABLES Final Res ult [facility] [address] [place] [address] documented in this encounter Visit Diagnoses Diagnosis Right renal mass- Primary Unspecified disorder of kidney and ureter Pre-op testing Preoperative examination, unspecified Right renal mass Unspecified disorder of kidney and ureter Pre-op testing Preoperative examination, unspecified documented in this encounter Care Teams Environmental Lead Relationship Specialty Start Date End Date Sergey Rodriguez MD [address] [place] [address] PCP - General Family Medicine 03/31/23 Jaxson Hall MD [address] [address] Consulting Physician Urology 04/03/23 documented as of this encounter
--- OUTSIDE RECORDS SUMMARY | 2025-02-09 13:26 | XMS_ITS | Clinical Summary ---
Author Organization [facility] Address [address] [place] [address] Care Team Providers Care Brainer Name Role Phone Sergey Rodriguez MD Primary Care Provider [phone] Brian Barney MD Unavailable Allergies Active Allergy Reactions Criticality Noted Date Comments Celecoxib Palpitations Low 12/03/2012 AFFECTS MY HEART Duloxetine Diarrhea 03/03/2012 Iodinated Contrast Media Rash Low 03/03/2012 Losartan Unknown 12/03/2012 SWELLING OF TONGUE AND SORE THROAT Morphine Nausea and Vomiting 03/03/2012 Nickel Rash Low 03/03/2012 Tape Rash Low 03/03/2012 Medications busPIRone 7.5 MG tablet 10/01/2021 Active calcium carbonate-vitam in D (OYSTER SHELL CALCIUM-VITAMIN D) 500-200 MG-UNIT Tab Take 1 tablet by mouth in the morning and 1 tablet before bedtime. Active cetirizine 10 MG tablet Take 10 mg by mouth in the morning. Active lisinopril 40 MG tablet Take 40 mg by mouth in the morning. 10/16/2021 Active Multiple Vitamins-Minera ls (CENTRUM SILVER) Tab Take 1 tablet by mouth. Active hydroCHLOROthia zide 25 MG tablet Take 25 mg by mouth in the morning. Active omeprazole 20 MG capsule Take 20 mg by mouth in the morning. 07/26/2021 Active Potassium 99 MG tablet Take 1 tablet by mouth daily. Active vitamin D3, cholecalciferol , 1000 UNIT Tab tablet Take 1 tablet by mouth in the morning. Active acetaminophen CR (TYLENOL 8 HOUR ARTHRITIS PAIN) 650 MG Tab CR 8 hr tablet Take 1,300 mg by mouth in the morning and 1,300 mg in the evening. Active Magnesium 200 MG Tab Take 200 mg by mouth daily. Active Homeopathic Products (LEG CRAMPS) Tab Take 2 tablets by mouth nightly. Active erythromycin (ROMYCIN) 5 MG/GM (0.5%) ophthalmic ointment APPLY A SMALL AMOUNT TO THE SURGICAL LID 3 TIMES DAILY 11/30/2021 Active oxyCODONE-aceta minophen (PERCOCET) 5-325 MG tablet Take 1 tablet by mouth every 4 (four) hours as needed. FOR PAIN 11/29/2021 Active cyclobenzaprine (FLEXERIL) 10 MG tablet 01/12/2022 Active traMADol (ULTRAM) 50 MG tablet Take 50 mg by mouth 2 (two) times daily. 01/25/2022 Active Active Problems Problem Noted Date Diagnosed Date Swelling of limb, left 11/15/2021 Varicose veins of left lower extremity with pain 11/15/2021 Knee joint replacement by other means 01/25/2013 Depressive disorder, not elsewhere classified Essential hypertension 03/03/2012 Overview (11/15/2021): Osteoarthrosis involving lower leg 03/03/2012 Overview (11/15/2021): 2015 IMO Updt Immunizations Immunization Administration Dates Next Due Fluzone High Dose - >Age 65 (Prefilled Syringe) 04/06/2021 Influenza Adult (Generic) 04/15/2019,03/30/2015 Shingrix 03/04/2018,01/06/2018 Zoster (Zostavax) 81649 Unt/0.65Ml 07/23/2013 Family History Medical History Relation Comments Heart Disease Mother Stroke Mother Relation Status Comments Father (Age 96) Mother (Age 90) Social History Tobacco Use Types Packs/Day Years Used Date Smoking Tobacco: Never Smokeless Tobacco: Never Alcohol Use Standard Drinks/Week Comments Never 0 (1 standard drink = 0.6 oz pur e alcohol) Comments Unknown Sex and Gender Information Value Date Recorded Sex Assigned at Not on file Legal Sex Female 9:12 AM CDT Gender Identity Not on file Sexual Orientation Not on file Last Filed Vital Signs Vital Sign Reading Time Taken Comments Blood Pressure 170/70 01/31/2022 3:34 PM CDT Pulse 70 01/31/2022 3:34 PM CDT Temperature - - Respiratory Rate - - Oxygen Saturation - - Inhaled Oxygen Concentration - - Weight 94.4 kg (208 lb 3.2 oz) 01/31/2022 3:34 P M CDT Height 177.8 cm (5' 10) 01/31/2022 3:34 PM CDT Body Mass Index 29.87 01/31/2022 3:34 PM CDT Plan of Treatment Health Maintenance Due Date Last Done Comments Hepatitis C 1963 DTaP, Tdap and Td Vaccines ( 1 - Tdap) 1965 Pneumococcal Vaccine: 50+ Years (1 of 1 - PCV) 1996 Annual Medicare Wellness Visit 2011 Dexa Scan (General) 2011 RSV Immunization or 60+ Years (1 - 1-dose 75+ series) 2021 COVID-19 Vaccine (4 - 2023-2 5 season) 2024 04/23/2021, 09/12/2020, 08/15/2020 Zoster Vaccines Completed 03/04/2018, 01/06/2018, 07/23/2013 Meningococcal B Vaccine Aged Out No l onger eligible based on patient's age to complete this topic Meningococcal Vaccine Aged Out No juan carlos emili eligible based on patient's age to complete this topic RSV Immunizations Under 20 Months Aged Out No longer eligible b ased on patient's age to complete this topic Insurance HUMANA Care Teams Brainer Relationship Specialty Start Date End Date Sergey Rodriguez MD [address] [place] [address] PCP - General FAMILY PRACTICE 09/21/21 Brian Barney MD [address] [address] Referring Physician VASCULAR SURGERY 09/21/21
== END 2025-02-09 13:10 | disposition home or self-care (01) ==
PROVIDERS: PCP Family Medicine; Visit Provider Internal Medicine Nephrology
DX: I12.9 Hypertensive chronic kidney disease with stage 1 through stage 4 chronic kidney disease, or unspecified chronic kidney disease (principal); N18.31 Chronic kidney disease, stage 3a; I25.10 Atherosclerotic heart disease of native coronary artery without angina pectoris; C64.9 Malignant neoplasm of unspecified kidney, except renal pelvis; Z90.5 Acquired absence of kidney
CPT/HCPCS: 76770

== ENCOUNTER 2025-03-09 09:05 | Outpatient (CLI) | payer MEDICARE, MEDICAID, SELFPAY ==
--- NOTE | ~2025-03-09 | XR_ITS ---
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 Right knee arthroplasty. Intact hardware and no loosening. Calcaneal enthesopathy. Mild diffuse tissue swelling around the ankle. Reviewed, dictated and finalized at location N.
--- NOTE | ~2025-03-09 | CT_ITS ---
EXAMINATION: CT brain wo wilbur, 03/09/2025 9:32 CDT HISTORY: Headache, unspecified COMPARISON: No comparisons available. Technique: Axial images obtained of the brain without contrast. One or more of the following dose reduction techniques were used: automated exposure control, adjustment of the mA and/or kV according to patient size, use of iterative reconstruction technique. Findings: No acute infarct or parenchymal hemorrhage. No abnormal mass or mass effect. No midline shift. No extra-axial fluid collections. No hydrocephalus. Mastoid air cells unremarkable. Sinuses and orbits unremarkable. No acute fracture. No significant facial or scalp soft tissue swelling evident. No radiopaque foreign body is seen. Impression: 1.No acute intracranial abnormality. Reviewed, dictated and finalized at location A. Impression: 1.No acute intracranial abnormality.
== END 2025-03-09 09:06 | disposition home or self-care (01) ==
LOC: MICIMG 09:06
PROVIDERS: PCP Family Medicine; Visit Provider Nurse Practitioner Family
DX: M77.31 Calcaneal spur, right foot (principal); L03.115 Cellulitis of right lower limb; Z96.651 Presence of right artificial knee joint; Z96.698 Presence of other orthopedic joint implants
CPT/HCPCS: 70450; 73590; 73610

== ENCOUNTER 2025-06-06 11:42 | Outpatient (CLI) | payer MEDICARE, MEDICAID, SELFPAY ==
--- NOTE | ~2025-06-06 | XR_ITS ---
EXAMINATION: XR chest 2V, 06/06/2025 11:50 ADJUSTMENT CLERK HISTORY: Cough, shortness of breath COMPARISON: No comparisons available. Technique: 2 views obtained. Findings: The lungs are clear, no effusion. No pneumothorax. Heart is normal size. Mediastinal and hilar contours are within normal limits. Bony thorax no acute abnormality. Impression: No acute cardiopulmonary abnormality. Reviewed, dictated and finalized at location P. STMENT CLERK Impression: No acute cardiopulmonary abnormality.
== END 2025-06-06 11:43 | disposition home or self-care (01) ==
PROVIDERS: PCP Family Medicine; Visit Provider Nurse Practitioner Family
DX: R05.9 Cough, unspecified (principal); R06.02 Shortness of breath
CPT/HCPCS: 71046

== ENCOUNTER 2025-06-12 10:40 | Emergency (ER) | payer MEDICARE, MEDICAID, SELFPAY ==
--- OUTSIDE RECORDS SUMMARY | 2025-06-12 10:42 | XMS_ITS | Encounter Summary ---
Author Organization [facility] Address [address] [place] [address] Care Team Providers Care Banquet Lead Name Role Phone Rigo Mcnamara MD Unavailable Maria Del Rosario Duenas MD Primary Care Provider + Encounter Details Date Type Department Care Team (Late st Contact Info) Description 01/07/2013 [facility] Outpatient Visit EXTERNAL NON-[facility] DEPT Unknown, Provider Social History Tobacco Use Types Packs/Day Years Used Date Smoking Tobacco: Never Smokeless Tobacco: Never Comments: SMOKES IN T HE HOUSE Alcohol Use Standard Drinks/Week Comments No 0 (1 standard drink = 0.6 oz pur e alcohol) Comments No Sex and Gender Information Value Date Recorded Sex Assigned at Not on file Legal Sex Female 2:01 PM INSURANCE FOLLOW UP SPECIALIST Gender Identity Not on file Sexual Orientation Not on file documented as of this encounter Plan of Treatment Not on file documented as of this encounter Visit Diagnoses Not on filedocumented in this encounter Care Teams Banquet Lead Relationship Specialty Start Date End Date Maria Del Rosario Duenas MD [address] [place] [address] PCP - General 03/03/12 Rigo Mcnamara MD Orthopedic Surgery 03/03/12 documented as of this encounter
--- OUTSIDE RECORDS SUMMARY | 2025-06-12 10:42 | XMS_ITS | Clinical Summary ---
Author Organization [facility] Address [address] [place] [address] Care Team Providers Care Gristmiller Name Role Phone Rigo Mcnamara MD Unavailable [phone] Maria Del Rosario Duenas MD Primary Care Provider + Source Comments [facility],non-owned Affiliates and Associated Physician Practices is amultiple site organization consisting of ambulatory clinics and hospital sitesin [place], [place], [place] and [place]. This disclosure is being madepursuant to the Care Everywhere program and may not contain all information available regarding this patient. 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 Gender Identity Not on file Sexual Orientation [...] yrs (1 - 1-dose 75+ series) 2021 DEPRESSION SCREENING 06/23/2024 MEDICARE AWV CALENDAR YEAR 2024 COVID-19 VACCINE (1 - 2024-2 6 season) 2025 INFLUENZA VACCINE (#1) 2025 , 03/30/2015 HEPATITIS [...] this topic Medical Devices Implanted Type Area Corporate Financial Analyst Device Identifier Shelf Expiration Date Model / Serial / Lot Darnell Bone [place] Hv Implanted:Qty: 1 on 12/17/2012 by Rigo Mcnamara MD at [facility] Left: Knee [employer] 06/21/2014 [id number] / / [id number] Biomet Modular Tibial Component Implanted:Qty: 1 on 12/17/2012 by Rigo Mcnamara MD at [facility] Left: Knee 11/19/2022 [id number] / / [id number] Biomet Primary Tibial Plate Implanted:Qty: 1 on 12/17/2012 by Rigo Mcnamara MD at [facility] Left: Knee 07/22/2022 [id number] / / [id number] Custom Titanium Vanguard Cr Femoral Implant Implanted:Qty: 1 on 12/17/2012 by Rigo Mcnamara MD at [facility] Left: Knee 07/22/2022 [id number] / / [id number] Biomet Arcom Patella Implanted:Qty: 1 on 12/17/2012 by Rigo Mcnamara MD at [facility] Left: Knee 10/20/2017 [id number] / / [id number] Rod Villarreal Brg 10mm X 75mm Implanted:Qty: 1 on 12/17/2012 by Rigo Mcnamara MD at [facility] Left: Knee [employer] Inc 10/20/2017 [id number] / / [id number] Darnell Bone [place] Hv Implanted:Qty: 1 on 12/17/2012 by Rigo Mcnamara MD at [facility] Left: Knee [employer] 06/21/2014 [id number] / / [id number] Insurance HUMANA MEDICARE ADV HMO & PPO [facility] Advance Directives * FULL RESUSCITATION (Latest Code Status on File) Date Activated Date Inactivated Comments 12/17/2012 3:35 PM 12/20/2012 12:08 PM Care Teams Gristmiller Relationship Specialty Start Date End Date Maria Del Rosario Duenas MD [address] [place] [address] PCP - General 03/03/12 Rigo Mcnamara MD Orthopedic Surgery 03/03/12
--- OUTSIDE RECORDS SUMMARY | 2025-06-12 10:42 | XMS_ITS | Clinical Summary ---
Author Organization [facility] Address [address] [place] [address] Phone Care Team Providers Care Municipal Court Judge Name Role Phone Sergey Rodriguez MD Primary Care Provider [phone] Jaxson Hall MD Unavailable Allergies Active Allergy [...] Comments Blood Pressure 125/74 05/06/2024 11:00 AM WHARFMASTER Pulse 65 05/06/2024 11:00 AM WHARFMASTER Temperature 37.1 C (98.8 F) 04/17/2023 8:14 AM CDT Respiratory Rate 19 05/06/2024 11:00 AM WHARFMASTER Oxygen Saturation 97% 05/06/2024 11:00 AM WHARFMASTER Inhaled Oxygen Concentration - - Weight 89.8 kg (198 lb) 05/06/2024 11:00 AM WHARFMASTER Height 180.3 cm (5' 11) 05/06/2024 11:00 AM WHARFMASTER Body Mass Index 27.62 05/06/2024 11:00 AM WHARFMASTER Plan of Treatment Health Maintenance Due Date Last Done Comments DEXA Bone Density 1945 Hepatitis C Virus (HCV) Screening 1945 TdaP Immunization 1945 Pneumococcal Immunization (50+ years) (1 of 1 - PCV) 1996 Medicare Initial AWV [id number] 02/20/2010 Respiratory Syncytial Virus (RSV) Immunization (Adult) (1 - 1-dose 75+ series) 2021 Influenza Immunization (#1) 02/21/20250 07/2021, 04/06/2021, 04/15/2019, Additional history exists SARS-COV-2 Immunization ( season) 2025 03/24/2022, 04/23/2021, 09/12/2020, Additional history exists Zoster Immunization Completed 03/04/2018, 01/06/2018, 07/23/2013 Hepatitis B Immunization Aged Out No longer eligible based on patient's age to complete this topic Human Papillomavirus (HPV) Immunization (No Doses Required) Completed Meningococcal Immunization (ACWY) Aged Out No longer eligible based on patient's age to complete this topic Rotavirus Immunization Aged Out No lo nger eligible based on patient's age to complete this topic Insurance MEDICARE C HUMANA [place]ICAID [place] Care Teams Municipal Court Judge Relationship Specialty Start Date End Date Sergey Rodriguez MD [address] [address] PCP - General Family Medicine 03/31/23 Jaxson Hall MD [address] [address] Consulting Physician Urology 04/03/23
--- OUTSIDE RECORDS SUMMARY | 2025-06-12 10:42 | XMS_ITS | Clinical Summary ---
Author Organization [facility] Address [address] [place] [address] Care Team Providers Care Supervisor Motor Vehicle Assembly Name Role Phone Sergey Rodriguez MD Primary Care Provider [phone] Medications acetaminophen (TYLENOL) 500 mg tablet Take [...] on file Legal Sex Female 9:06 AM PLANT RELIABILITY ENGINEER Gender Identity Not on file Sexual Orientation [...] Visit 65+ 2011 Covid-19 Vaccine (5 - 2024-2 6 season) 2025 03/24/2022, 04/23/2021, 09/12/2020, Additional history exists Influenza Vaccine (#1) 2025 , 04/06/2021, 04/15/2019, Additional history exists Zoster Vaccine Completed 03/04/2018, 12/21, 07/23/2013 Insurance [employer] MEDIC[employer] HMO IDPA Care Teams Supervisor Motor Vehicle Assembly Relationship Specialty Start Date End Date Sergey Rodriguez MD PCP - General Family Medicine 08/10/21
--- OUTSIDE RECORDS SUMMARY | 2025-06-12 10:42 | XMS_ITS | Encounter Summary ---
Author Organization [facility] Health Address [address] [place] [address] Care Team Providers Care Vp Corporate Partnerships Name Role Phone Rigo Mcnamara MD Unavailable Maria Del Rosario Duenas MD Primary Care Provider + Encounter Details Date Type Department Care Team (Late st Contact Info) Description 01/05/2013 [facility] Outpatient Visit EXTERNAL NON-[facility] DEPT Unknown, Provider Social History Tobacco Use Types Packs/Day Years Used Date Smoking Tobacco: Never Smokeless Tobacco: Never Comments: SMOKES IN T HE HOUSE Alcohol Use Standard Drinks/Week Comments No 0 (1 standard drink = 0.6 oz pur e alcohol) Comments No Sex and Gender Information Value Date Recorded Sex Assigned at Not on file Legal Sex Female 2:01 PM ASSET ADMINISTRATOR Gender Identity Not on file Sexual Orientation Not on file documented as of this encounter Plan of Treatment Not on file documented as of this encounter Visit Diagnoses Not on filedocumented in this encounter Care Teams Vp Corporate Partnerships Relationship Specialty Start Date End Date Maria Del Rosario Duenas MD [address] [place] [address] PCP - General 03/03/12 Rigo Mcnamara MD Orthopedic Surgery 03/03/12 documented as of this encounter
--- OUTSIDE RECORDS SUMMARY | 2025-06-12 10:42 | XMS_ITS | Clinical Summary ---
Author Organization [facility] Address [address] [place] [address] Care Team Providers Care Federal Judicial Law Clerk Name Role Phone Sergey Rodriguez MD Primary Care Provider [phone] Brian Barney MD Unavailable Allergies Active Allergy [...] Adult (Generic) 04/15/2019,03/30/2015 Shingrix 03/04/2018,01/06/2018 Zoster (Zostavax) [id number] Unt/0.65Ml 07/23/2013 Family History Medical History Relation [...] 75+ series) 2021 COVID-19 Vaccine (4 - 2024-2 6 season) 2025 04/23/2021, 09/12/2020, 08/15/2020 Influenza Adult (#1) 2025 04/06/2021, 04/15/2019, 03/30/2015 Zoster Vaccines Completed 03/04/2018, 01/06/2018, 07/23/2013 Hepatitis A Vaccines Aged Out No long er eligible based on patient's age to complete this topic Meningococcal B Vaccine Aged Out No l onger eligible based on patient's age to complete this topic Meningococcal Vaccine Aged Out No juan carlos emili eligible based on patient's age to complete this topic RSV Immunizations Under 20 Months Aged Out No longer eligible b ased on patient's age to complete this topic [place] [address] [place] [address] MEDICARE Care Teams Federal Judicial Law Clerk Relationship Specialty Start Date End Date Sergey Rodriguez MD [address] [place] [address] PCP - General FAMILY PRACTICE 09/21/21 Brian Barney MD [address] [address] Referring Physician VASCULAR SURGERY 09/21/21
== END 2025-06-12 10:41 | disposition left against medical advice (07) ==
PROVIDERS: PCP Family Medicine
DX: Z53.21 Procedure and treatment not carried out due to patient leaving prior to being seen by health care provider (principal)
CPT/HCPCS: 99199